=== PATIENT | male | born 1935 | race Caucasian/White ===

== ENCOUNTER 2022-02-14 18:07 | Inpatient (IN) | payer MEDICARE ==
[~2022-02-14] VITALS: Ht 185.4 cm; Wt 79.4 kg
[2022-02-14] MEDS: BLOOD SUGAR DIAGNOSTIC 1 EACH STRIP VI SCH (01:20)
--- NOTE | 2022-02-14 18:22 | NUR ---
Patient is in CT scan@this time, pending nursing hands off report from discharge rn Andrei@this time.
[2022-02-14] MEDS ORDERED: ASPI81TA31 PO (18:38)
[2022-02-14] MEDS ORDERED: INSULIN DETEMIR (18:38)
[2022-02-14] MEDS ORDERED: CRESTOR (18:38)
[2022-02-14] MEDS ORDERED: ALBUTEROL SULF (18:38)
[2022-02-14] MEDS ORDERED: COREG (18:38)
[2022-02-14] MEDS ORDERED: DECADRON (18:38)
--- NOTE | 2022-02-14 18:38 | NUR ---
PT DOES NOT REMEMBER HIS HOME MEDICATION DOSAGES.
--- NOTE | 2022-02-14 18:45 | NUR ---
1st contact with patient: He is lethargic-looking, oriented to name and situation, moving all extremities, follows simple commands. Patient said, "I have disorientation." Dr Trammell@bedside.
--- NOTE | 2022-02-14 18:56 | NUR ---
NPO per Dr Trammell.
[2022-02-14 19:00] VITALS: BP 108/49
--- NOTE | 2022-02-14 19:02 | NUR ---
Respiratory therapist@bedside. ABG being drawn. Patient need urine sample for lab studies. Nursing report given to JUANY Maldonado.
[2022-02-14 19:07] LABS: ABG BASE EXCESS -6.6 mmol/L; ABG HCO3 25.6 mmol/L; ABG PCO2 94.3 mmHg (35.0-45.0); ABG PH 7.051 (7.350-7.450); ABG PO2 87.8 mmHg (75.0-100.0); ABG SITE LEFT RADIAL; ABG TOTAL HEMOGLOBIN 12.2 G/dL (13.5-18.0); COHb 0.5 % (0.5-1.5); MetHb 0.3 % (0.0-1.5); O2Hb 95.1 % (94.0-97.0); VENT MODE Nasal Cannula
[2022-02-14 19:11] LABS: HEMATOCRIT 36.5 % (36.7-47.1); MEAN CORPUSCULAR HEMOGLOBIN 30.3 uug (23.8-33.4); MEAN CORPUSCULAR VOLUME 95.7 fL (73.0-96.2); PLATELET COUNT (AUTO) 273 K/uL (152-348)
[2022-02-14 19:20] LABS: ETHANOL < 3 MG/DL (0-0)
--- NOTE | 2022-02-14 19:21 | NUR ---
Dr Trammell spoke to Dr Noble for neuro surgery consult.
[2022-02-14 19:27] LABS: ALANINE AMINOTRANSFERASE 20 U/L (16-63); ALKALINE PHOSPHATASE 92 U/L (50-136); ASPARTATE AMINOTRANSFERASE 20 U/L (15-37); BILIRUBIN,DIRECT 0.1 mg/dL (0.0-0.2); BILIRUBIN,TOTAL 0.2 mg/dL (0.2-1.0); CARBON DIOXIDE 29 mmol/L (21-32); CHLORIDE 89 mmol/L (98-107); CREATININE 3.8 mg/dL (0.6-1.3); POTASSIUM 4.6 mmol/L (3.5-5.1); TOTAL PROTEIN, SERUM 6.2 g/dL (6.4-8.2)
[2022-02-14 19:28] LABS: ACETAMINOPHEN < 2.0 ug/mL (10-30); GLUCOSE 337 mg/dL (74-106)
[2022-02-14 19:29] LABS: UREA NITROGEN, BLOOD 91 mg/dL (7-18)
--- NOTE | 2022-02-14 19:36 | NUR ---
abg as follows ph 7.05 co2 94 po2 87.8 hc03 25.6 pt was placed on bipap with settings. 15/5 rate 18 fi02 30 percent.
--- NOTE | 2022-02-14 19:39 | NUR ---
pt initially lethargic pt arouses and is verbal. pt is on bipap at this time.
[2022-02-14] MEDS ORDERED: levoFLOXacin 750MG/D5W 150 ML IV ONE ×2 (19:45→20:00)
[2022-02-14] MEDS ORDERED: PIPERACILLIN SODIUM/TAZOBACTAM 3.375 G in IV DEXTROSE 5% 50 ML IV ONE (19:45)
[2022-02-14 20:00] VITALS: BP 144/90
[2022-02-14] MEDS ORDERED: PIPERACILLIN/TAZOBACTAM/D5W 50 ML IV ONE (20:00)
[2022-02-14 20:28] LABS: *BILIRUBIN,URIN 1+ (NEGATIVE); *BLOOD, URINE 3+ (NEGATIVE); *CLARITY,URINE CLOUDY (CLEAR); *COLOR,URINE AMBER (YELLOW); *KETONES,URINE NEGATIVE (NEGATIVE); *UROBILINOGEN,URINE 0.2 E.U./dl (NORMAL); LEUKOCYTE ESTERASE ,URINE 1+ (NEGATIVE); NITRITE, URINE NEGATIVE (NEGATIVE); PH,URINE 5.5 (5.0-8.0); UGLUCOSE TRACE (NEGATIVE)
[2022-02-14] MEDS ORDERED: MAGNESIUM HYDROXIDE 30 ML LIQUID UDC PO PRN (20:30)
[2022-02-14] MEDS ORDERED: CEFEPIME HCL 1 G in IV DEXTROSE 5% 50 ML IV SCH (20:30)
[2022-02-14] MEDS ORDERED: ACETAMINOPHEN 325 MG TABLET PO PRN (20:30)
[2022-02-14] MEDS ORDERED: ONDANSETRON 4 MG/2 ML VIAL IV PRN (20:30)
[2022-02-14] MEDS ORDERED: HYDROCODONE/APAP 5-325MG TABLET PO PRN (20:30)
[2022-02-14] MEDS ORDERED: MORPHINE SULFATE 2 MG/1 ML DISP.SYRIN IV PRN (20:30)
[2022-02-14 20:46] LABS: *AMPHETAMINE, URINE NEGATIVE (NEGATIVE); *CANNABINOID, URINE NEGATIVE (NEGATIVE); *COCCAINE, URINE NEGATIVE (NEGATIVE); *OPIATE, URINE NEGATIVE (NEGATIVE); *PHENCYCLIDINE SCREEN,URINE NEGATIVE (NEGATIVE)
[2022-02-14 20:54] LABS: BACTERIA,URINE FEW /HPF (NONE SEEN); RBC,URINE TNTC /HPF (0-3); SQUAMOUS EPITHELIAL CELL,UR FEW /HPF (NONE SEEN)
[2022-02-14 21:00] VITALS: BP 121/50
[2022-02-14] MEDS: INSULIN GLARGINE,HUM 300 UNITS/3 ML CARTRIDGE SQ SCH (21:00)
[2022-02-14] MEDS ORDERED: DEXTROSE 50% 50 ML DISP.SYRIN IV PRN (21:00)
--- NOTE | 2022-02-14 21:03 | NUR ---
clarified orders pt is icu status, pt remains on bipap, pt is comfortable on bipap at this time. pt is able to move all extrem and make needs known despite having the bipap mask on. pt family at the bedside talking with the pt.
[2022-02-14 22:00] VITALS: BP 116/65
--- NOTE | 2022-02-14 22:08 | NUR ---
pt states he is more comforatable he does not feel like he is struggling to breathe. pt's daughter remains at the bedside. explained why he is on the bipap and abg results.
--- NOTE | 2022-02-14 22:20 | NUR ---
spoke with Astrid HARRINGTON they will call back in 15 to 20 mintues to take report on the pt.
--- NOTE | 2022-02-14 22:28 | NUR ---
pt is currently having an ultrasound performed, pt has a pending head ct.
--- NOTE | 2022-02-14 22:59 | NUR ---
report was given to Kinjal HARRINGTON pt to go to room icu bed 5.
[2022-02-14 23:00] VITALS: BP 121/55
--- NOTE | 2022-02-14 23:15 | NUR ---
pt was transported to cat scan and then to icu bed 5, Romain HARRINGTON accompanied me to cat scan and to icu. In auricular therapistJUANY Sahu was in the room to receive the pt. pt transported with all belongings.
--- NOTE | 2022-02-14 23:40 | NUR ---
Received patient in the ICU awake and alert and oriented times three. Pt was accompanied by RN and RT PT is in no distress. O2 in use via NC. assisted to transfer from [facility]. Pt has tolerated the activity.
[2022-02-14] MEDS ORDERED: CEFEPIME HCL 1 G in IV DEXTROSE 5% 50 ML IV ONE (23:45)
--- NOTE | 2022-02-14 23:45 | NUR ---
PATIENT NOW IN CCU #5 WITH O2 2L/M NC, S/B BI/PAP CAME FROM CT/SCAN WITH NURSE, PT DOING MUCH BETTER, AWAKE, AND TALKING CLEAR. Carisa STOKES RCP Addendum: 02/14/22 at 2347 by DEANGELO STOKES RT Amended: Links added.
[2022-02-15] VITALS (21 sets, daily range): BP systolic 88–144; BP diastolic 45–87
--- NOTE | 2022-02-15 01:06 | NUR ---
BS 284. WILLL COVER PER ADMIT ORDERS. SPOKE TO PATIENT'S DAUGHTER LISSETTE WHO WISHES THAT ALL HOME MEDICATIONS RENEWED IMMIDIATELY. WILL NOTIFY MD MAINFRAME PROGRAMMER.
[2022-02-15] MEDS: INSULIN REGULAR, HUMAN 300 UNIT/3 ML VIAL SQ PRN ×4 (01:38→17:44)
[2022-02-15] MEDS ORDERED: CEFEPIME HCL 1 G VIAL ONE (01:42)
[2022-02-15] MEDS: CEFEPIME HCL 1 G in IV DEXTROSE 5% 50 ML IV SCH ×3 (02:29→15:00)
[2022-02-15] MEDS ORDERED: MORPHINE SULFATE 2 MG/1 ML DISP.SYRIN IV ONE (03:30)
--- NOTE | 2022-02-15 04:09 | NUR ---
pt verbalizes feelimg a sense of doom. Dr Tobias called to request medicationfor anxiety. Morphine administered as ordered.BP 120/50, hr 82 o2sat 98 RR 20.. Will continue to manitor effectiveness of medication.
[2022-02-15 05:36] LABS: HEMATOCRIT 33.8 % (36.7-47.1); MEAN CORPUSCULAR HEMOGLOBIN 30.8 uug (23.8-33.4); MEAN CORPUSCULAR VOLUME 93.6 fL (73.0-96.2); PLATELET COUNT (AUTO) 256 K/uL (152-348)
[2022-02-15 05:45] LABS: CARBON DIOXIDE 29 mmol/L (21-32); CHLORIDE 90 mmol/L (98-107); CREATININE 3.9 mg/dL (0.6-1.3); GLUCOSE 275 mg/dL (74-106); MAGNESIUM 2.7 mg/dL (1.8-2.4); PHOSPHOROUS 5.8 mg/dL (2.5-4.9); POTASSIUM 4.2 mmol/L (3.5-5.1)
--- NOTE | 2022-02-15 05:56 | NUR ---
Lab called and spoke with Zeke cavazos: critical lab result BUN 95. Relayed result to primary nurse JUANY Layton.
[2022-02-15 05:57] LABS: UREA NITROGEN, BLOOD 95 mg/dL (7-18)
--- NOTE | 2022-02-15 05:57 | NUR ---
Called EPIC exchange re: critical lab result. Awaiting for callback.
[2022-02-15 05:58] LABS: THYROID STIMULATING HORMONE 2.444 mIU/mL (0.358-3.740)
--- NOTE | 2022-02-15 06:40 | NUR ---
Called EPIC exchange re: critical lab result. Awaiting for callback.
[2022-02-15] MEDS: GUAIFENESIN/DEXTROMETHORPHAN 5 ML UDC PO PRN (07:04)
[2022-02-15] MEDS: BLOOD SUGAR DIAGNOSTIC 1 EACH STRIP VI SCH ×4 (07:30→22:14)
[2022-02-15 07:31] LABS: ABG BASE EXCESS -5.2 mmol/L; ABG PCO2 75.7 mmHg (35.0-45.0); ABG PH 7.136 (7.350-7.450); ABG PO2 99.7 mmHg (75.0-100.0); ABG SITE RIGHT BRACHIAL; ABG TOTAL HEMOGLOBIN 11.6 G/dL (13.5-18.0); COHb 0.2 % (0.5-1.5); MetHb 0.1 % (0.0-1.5); O2Hb 96.9 % (94.0-97.0); VENT MODE Nasal Cannula
--- NOTE | 2022-02-15 07:35 | NUR ---
attempted to place pt on BiPap post ABG, pt awake, alert, sts does not want BiPap at this time, and does not want breakfast, Marva HARRINGTON notified and aware..
[2022-02-15] MEDS ORDERED: BISACODYL 10 MG SUPP.RECT RC PRN (08:15)
[2022-02-15] MEDS ORDERED: BISACODYL 10 MG SUPP.RECT RC ONE (08:30)
[2022-02-15] MEDS: PANTOPRAZOLE SODIUM 40 MG VIAL IV SCH (09:51)
--- NOTE | 2022-02-15 09:55 | NUR ---
Patient;s son in to visit and spoke with Dr Calderon Pulmargarita. Patient has been off the Bipap since 629 and been on O2 2L via nasal canula O2SAT 97.
[2022-02-15] MEDS: LORAZEPAM 2 MG/1 ML VIAL IV PRN (10:14)
--- NOTE | 2022-02-15 10:22 | NUR ---
Lorazapam administered as ordered with BP 111/58, AND RR 18, o2sat 97 . Family is at the bedside SW att he bedside.
--- NOTE | 2022-02-15 10:42 | NUR ---
Clinical SW Note: SW provided a consult for the pt as requested by MIRIAM Tobias. Pt is alert and oriented x1. Pt appeared to know he is in a hospital. Pt appeared to be confused otherwise. Pt appeared lethargic and drowsy. Pt's son, Mesfin ([phone]) was present and stated the pt currently lives with a 24/7 caregiver, Tammy who will continue caregiving after discharge and pt's , Alysa in [place]. Mesfin stated he has 2 other siblings, Yang ([phone]) and a brother, Dyllan, ([phone]). Mesfin stated pt was independent prior to hospitalization and significantly declined within a few days prior to hospitalization. DORIAN stated this underwriter solicitation director will be available for further questions as needed. DORIAN will continue to work with pt, family and MD to ensure a safe and proper discharge plan.
[2022-02-15] MEDS ORDERED: ALBUTEROL SULFATE 1.25 MG/3 ML NEBU NEB PRN (13:30)
[2022-02-15] MEDS ORDERED: LEVALBUTEROL HCL NEB 0.63 MG/3 ML NEBU NEB SCH (13:30)
[2022-02-15] MEDS: ALBUTEROL SULFATE 1.25 MG/3 ML NEBU NEB SCH ×2 (15:22→19:30)
[2022-02-15] MEDS: IPRATROPIUM BROMIDE 0.5 MG/2.5 ML NEBU NEB SCH ×2 (15:22→19:30)
[2022-02-15] MEDS ORDERED: CARV6.252 PO (17:54)
[2022-02-15] MEDS ORDERED: ALBU18HF2 INH (18:00)
[2022-02-15] MEDS ORDERED: INSU300I3 SQ (18:00)
[2022-02-15] MEDS ORDERED: DEXA4TAB PO (18:00)
[2022-02-15] MEDS ORDERED: BENZ200C53 PO (18:00)
[2022-02-15] MEDS ORDERED: VIT1TABL46 PO (18:00)
[2022-02-15] MEDS ORDERED: NATE120T6 PO (18:00)
[2022-02-15] MEDS ORDERED: SEVE800T8 PO (18:00)
[2022-02-15] MEDS ORDERED: ROSU20TA2 PO (18:00)
[2022-02-15] MEDS ORDERED: ACET-73 PO (18:00)
--- NOTE | 2022-02-15 20:00 | NUR ---
PT IS ASLEEP AND IS IN NO DISTRESS. PATIENT IS VALM AND TOLERATING BIPAP PER MD ORDER. VS IS WNL. ENDORSED REPORT TO LOBO RN. IV IN LWRIST IS INTACT ABD PATENT. RICHEY CATHIS INTACT AND PATENT URINE IS CLEAR YELLOW.
--- NOTE | 2022-02-15 20:20 | NUR ---
Received patient from CCU unit, alert oriented, but forgetful, no so Addendum: 02/16/22 at 0045 by LORENZO TAYLOR RN Received patient from CCU unit, alert oriented, but forgetful, no so, charting in error.
--- NOTE | 2022-02-15 20:20 | NUR ---
Received patient from CCU unit, alert oriented x 2/3, no complain of pain, no complain of chest pain, on oxygen for short of breath, patient has moist cough, kept hob elevated, tele monitor.sinus rhythm with trigeminy, patient unable to lay flat, with sacral sore and bilateral heel sores, daughter at bedside, cont to monitor
[2022-02-15] MEDS: FOLIC ACID/VITAMIN B COMP W-C TABLET PO SCH (21:58)
[2022-02-15] MEDS: INSULIN GLARGINE,HUM 300 UNITS/3 ML CARTRIDGE SQ SCH (22:22)
--- NOTE | 2022-02-16 00:15 | NUR ---
RESTORIL ADMINISRTED. pt desats 87. RT NOTIFIED. AND BIPAP STARTED TO MAINTAIN UXYGENATION. PT IS ASLEEP WITHOUT DISTRESS. BP 122/42,HR 82. WILL CONTINUE TO MONITOR. HOB 45.
[2022-02-16] MEDS: CEFEPIME HCL 1 G in IV DEXTROSE 5% 50 ML IV SCH (01:45)
[2022-02-16] MEDS: IPRATROPIUM BROMIDE 0.5 MG/2.5 ML NEBU NEB SCH ×4 (01:45→19:27)
[2022-02-16] MEDS: ALBUTEROL SULFATE 1.25 MG/3 ML NEBU NEB SCH ×4 (01:45→19:27)
[2022-02-16 04:00] VITALS: BP 126/64
[2022-02-16] MEDS: BLOOD SUGAR DIAGNOSTIC 1 EACH STRIP VI SCH ×4 (06:02→21:00)
[2022-02-16 06:20] LABS: ABG BASE EXCESS -4.4 mmol/L; ABG HCO3 24.7 mmol/L; ABG PCO2 66.1 mmHg (35.0-45.0); ABG PO2 86.1 mmHg (75.0-100.0); ABG SITE RIGHT BRACHIAL; ABG TOTAL HEMOGLOBIN 11.5 G/dL (13.5-18.0); COHb 0.2 % (0.5-1.5); O2Hb 95.8 % (94.0-97.0); VENT MODE Nasal Cannula
[2022-02-16 07:04] LABS: HEMATOCRIT 33.7 % (36.7-47.1); MEAN CORPUSCULAR HEMOGLOBIN 30.4 uug (23.8-33.4); MEAN CORPUSCULAR VOLUME 92.2 fL (73.0-96.2); PLATELET COUNT (AUTO) 269 K/uL (152-348)
--- NOTE | 2022-02-16 07:06 | NUR ---
Patient awake alert, no complain of pain, tele monitor sinus rhythm, sinus tachy, no complain of pain at this time, patient was on CPAP all night tolerate well, Patient tolerate po meds and po fluids, with on and off moist cough, kept hob elevated, cont to monitor.
[2022-02-16 07:23] LABS: ALANINE AMINOTRANSFERASE 35 U/L (16-63); ALKALINE PHOSPHATASE 71 U/L (50-136); ASPARTATE AMINOTRANSFERASE 20 U/L (15-37); BILIRUBIN,TOTAL 0.1 mg/dL (0.2-1.0); CARBON DIOXIDE 30 mmol/L (21-32); CHLORIDE 91 mmol/L (98-107); CHOLESTEROL 66 mg/dL (<200); CREATININE 4.4 mg/dL (0.6-1.3); GLUCOSE 108 mg/dL (74-106); HDL CHOLESTEROL 40 mg/dL (40-60); PHOSPHOROUS 5.6 mg/dL (2.5-4.9); POTASSIUM 4.6 mmol/L (3.5-5.1); TRIGLYCERIDES 51 MG/DL (30-150)
--- NOTE | 2022-02-16 07:30 | NUR ---
Sleeping, appears comfortable. O2 at 2L/NC with O2 sat of 95%. Discussed with Dr. Roldan and RT regarding titrating O2 with goal of 88-92%. Will titrate O2 to 1L/NC
[2022-02-16 07:34] LABS: THYROID STIMULATING HORMONE 2.503 mIU/mL (0.358-3.740)
[2022-02-16 07:50] VITALS: BP 114/49
[2022-02-16 08:04] LABS: UREA NITROGEN, BLOOD 101 mg/dL (7-18)
[2022-02-16] MEDS: PANTOPRAZOLE SODIUM 40 MG VIAL IV SCH (09:35)
[2022-02-16] MEDS: ASPIRIN 81 MG TAB.CHEW PO SCH (09:35)
[2022-02-16] MEDS: GUAIFENESIN LA 600 MG TABLET.SA PO SCH ×2 (09:35→22:34)
[2022-02-16] MEDS: SEVELAMER CARBONATE 800 MG TABLET PO SCH ×3 (09:35→18:13)
[2022-02-16] MEDS: ACIDOPHILUS/BULGARICUS CHEW TAB PO SCH ×2 (09:35→22:34)
--- NOTE | 2022-02-16 10:30 | NUR ---
Assisted out of bed to the commode with BM. Ambulated with PT outside the room, tolerated.
[2022-02-16 11:06] VITALS: BP 121/46
[2022-02-16 11:41] VITALS: BP 121/46
[2022-02-16] MEDS: INSULIN REGULAR, HUMAN 300 UNIT/3 ML VIAL SQ PRN ×3 (12:18→22:36)
--- NOTE | 2022-02-16 12:30 | NUR ---
O2 titrated to 0.5L/NC with O2 sat of 95%. Removed O2 with O2 sat of 95-98%, not in distress
[2022-02-16] MEDS: CEFEPIME HCL 2 G in IV DEXTROSE 5% 100 ML IV SCH (13:55)
--- NOTE | 2022-02-16 14:30 | NUR ---
Assisted to the chair per patients request with family at bedside
[2022-02-16 16:00] VITALS: BP 121/62
--- NOTE | 2022-02-16 16:00 | NUR ---
Assisted back to bed, tolerated approximately 2 hours of sitting on the chair, not in distress.
[2022-02-16] MEDS: FOLIC ACID/VITAMIN B COMP W-C TABLET PO SCH (18:13)
--- NOTE | 2022-02-16 18:57 | NUR ---
With poor po intake. Encouraged by family at bedside. Room air with O2 sat of 94%, not in distress
[2022-02-16 20:00] VITALS: BP 124/52
[2022-02-16] MEDS: INSULIN GLARGINE,HUM 300 UNITS/3 ML CARTRIDGE SQ SCH (22:40)
[2022-02-16] MEDS: GUAIFENESIN/DEXTROMETHORPHAN 5 ML UDC PO PRN (22:45)
[2022-02-17] VITALS (7 sets, daily range): BP systolic 103–147; BP diastolic 44–70
[2022-02-17] MEDS ORDERED: TEMAZEPAM 15 MG CAPSULE PO PRN
--- NOTE | 2022-02-17 01:30 | NUR ---
ASLEEP IN BED. RESP IS REGULAR AND EVEN O2AST 94 ON BIPAP 15/5, RATE 16 FIO2 30.. RICHEY CATH IS INTACT AND PATEN AND DRAINING ADEQUATE URINE.
[2022-02-17] MEDS: IPRATROPIUM BROMIDE 0.5 MG/2.5 ML NEBU NEB SCH ×4 (01:41→19:35)
[2022-02-17] MEDS: ALBUTEROL SULFATE 1.25 MG/3 ML NEBU NEB SCH ×4 (01:41→19:35)
[2022-02-17] MEDS ORDERED: MEROPENEM 500MG/NS 50ML PB ***ER PYXIS ONLY IV ONE (02:02)
--- NOTE | 2022-02-17 03:00 | NUR ---
PT IS ASLEEP IN BED. AROUSABLE TO TACTILE STMULI. RBIPAP REMOVED BY RT. O2 APPLYED VIA NC BY RT. . RESP IS REGULARAND UNLABORED. HOB 45 PT HAS A PRODUCTIVE COUGH THIS SHIFT. TOLERATED BREATHING TREATMENT;
[2022-02-17 06:42] LABS: HEMATOCRIT 33.5 % (36.7-47.1); MEAN CORPUSCULAR HEMOGLOBIN 30.9 uug (23.8-33.4); MEAN CORPUSCULAR VOLUME 91.7 fL (73.0-96.2); PLATELET COUNT (AUTO) 265 K/uL (152-348)
[2022-02-17 07:13] LABS: CARBON DIOXIDE 28 mmol/L (21-32); CHLORIDE 91 mmol/L (98-107); CREATININE 4.6 mg/dL (0.6-1.3); GLUCOSE 94 mg/dL (74-106); MAGNESIUM 3.1 mg/dL (1.8-2.4); PHOSPHOROUS 5.4 mg/dL (2.5-4.9); POTASSIUM 4.4 mmol/L (3.5-5.1)
[2022-02-17 07:16] LABS: UREA NITROGEN, BLOOD 105 mg/dL (7-18)
[2022-02-17] MEDS: BLOOD SUGAR DIAGNOSTIC 1 EACH STRIP VI SCH ×4 (07:30→21:05)
--- NOTE | 2022-02-17 07:30 | NUR ---
RECEIVED PT SLEEPING. PT IS CONFUSED AND REFUSING TO PUT BIPAP ON LAST NIGHT PER NOC SHIFT NURSE. PT HAVE RIGO 20G SALINE LOCK. FC [id number] AND DRAINING WELL.
[2022-02-17 08:02] LABS: ABG BASE EXCESS -6.5 mmol/L; ABG HCO3 23.2 mmol/L; ABG PH 7.145 (7.350-7.450); ABG PO2 82.8 mmHg (75.0-100.0); ABG SITE RIGHT RADIAL; ABG TOTAL HEMOGLOBIN 11.6 G/dL (13.5-18.0); COHb 0.3 % (0.5-1.5); MetHb 0.2 % (0.0-1.5); O2Hb 94.5 % (94.0-97.0); VENT MODE Nasal Cannula
--- NOTE | 2022-02-17 08:35 | NUR ---
Pt removed BiPap, refused to put back on, RN notified..
[2022-02-17] MEDS: PANTOPRAZOLE SODIUM 40 MG TABLET.DR PO SCH (09:08)
[2022-02-17] MEDS: SEVELAMER CARBONATE 800 MG TABLET PO SCH ×3 (09:08→18:03)
[2022-02-17] MEDS: ASPIRIN 81 MG TAB.CHEW PO SCH (09:08)
[2022-02-17] MEDS: GUAIFENESIN LA 600 MG TABLET.SA PO SCH ×2 (09:08→20:59)
[2022-02-17] MEDS: ACIDOPHILUS/BULGARICUS CHEW TAB PO SCH ×2 (09:08→20:54)
--- NOTE | 2022-02-17 10:00 | NUR ---
TALKED TO NURSE TRAVEL RN TO REQUEST FOR THE FAMILY TO STAY BEDSIDE. NS WILL ALLOW FAMILY TO STAY DAY AND NIGHT.
[2022-02-17] MEDS: CEFEPIME HCL 2 G in IV DEXTROSE 5% 100 ML IV SCH (15:03)
--- NOTE | 2022-02-17 16:30 | NUR ---
BIPAP REMOVED FOR A BREAK PER PT REQUEST. PT PLACED ON 2lpm NASAL CANULA. NO DISTRESS NOTED. NURSE JENNY AWARE AND NOTIFIED. WILL CONTINUE TO MONITOR
[2022-02-17] MEDS: FOLIC ACID/VITAMIN B COMP W-C TABLET PO SCH (18:03)
--- NOTE | 2022-02-17 19:45 | NUR ---
Patient in bed awake and able to make needs known.Tele monitor sinus rhythm. O2 at 1 LPM via NC. No s/s of distress noted.HOB elevated. Aspiration precaution observed .Patient tolerate po meds and po fluids.Family member at bedside.Will continue to monitor.
--- NOTE | 2022-02-17 19:54 | NUR ---
PT IS ALERT AND COOPERATIVE. PT IS BIPAP COMPLIANCE. DR WILSON TALKED TO THE FAMILY.
[2022-02-17] MEDS: INSULIN GLARGINE,HUM 300 UNITS/3 ML CARTRIDGE SQ SCH (21:08)
[2022-02-17] MEDS: INSULIN REGULAR, HUMAN 300 UNIT/3 ML VIAL SQ PRN (21:11)
--- NOTE | 2022-02-17 23:20 | NUR ---
Patient HOB elevated.Placed on bipap by RT.Tolerated well. No SOB at this time.Will continue to monitor.
[2022-02-18 00:28] VITALS: BP 140/62
[2022-02-18] MEDS: ALBUTEROL SULFATE 1.25 MG/3 ML NEBU NEB SCH ×4 (01:02→19:30)
[2022-02-18] MEDS: IPRATROPIUM BROMIDE 0.5 MG/2.5 ML NEBU NEB SCH ×4 (01:02→19:30)
[2022-02-18 04:33] VITALS: BP 145/65
[2022-02-18] MEDS: PANTOPRAZOLE SODIUM 40 MG TABLET.DR PO SCH (06:05)
[2022-02-18 06:11] LABS: ALANINE AMINOTRANSFERASE 25 U/L (16-63); ALKALINE PHOSPHATASE 59 U/L (50-136); ASPARTATE AMINOTRANSFERASE 16 U/L (15-37); BILIRUBIN,TOTAL 0.4 mg/dL (0.2-1.0); CARBON DIOXIDE 28 mmol/L (21-32); CHLORIDE 92 mmol/L (98-107); CREATININE 4.6 mg/dL (0.6-1.3); GLUCOSE 91 mg/dL (74-106); MAGNESIUM 3.3 mg/dL (1.8-2.4); PHOSPHOROUS 5.1 mg/dL (2.5-4.9); POTASSIUM 4.7 mmol/L (3.5-5.1); TOTAL PROTEIN, SERUM 5.6 g/dL (6.4-8.2)
[2022-02-18 06:24] LABS: UREA NITROGEN, BLOOD 103 mg/dL (7-18)
[2022-02-18] MEDS: BLOOD SUGAR DIAGNOSTIC 1 EACH STRIP VI SCH ×4 (06:34→21:29)
--- NOTE | 2022-02-18 06:34 | NUR ---
Patient tolerated BIPAP.NO SOB.BS 74.[place] juice and pudding given.Wound care tx provided.Tolerated well. Changed and repositioned patient.Kept HOB elevated. Breathing tx given by RT.F/c in place. Needs anticipated and met accordingly.Will endorse to incoming shift.
[2022-02-18 06:40] LABS: HEMATOCRIT 31.8 % (36.7-47.1); MEAN CORPUSCULAR HEMOGLOBIN 30.5 uug (23.8-33.4); MEAN CORPUSCULAR VOLUME 90.8 fL (73.0-96.2); PLATELET COUNT (AUTO) 264 K/uL (152-348)
[2022-02-18] MEDS: SEVELAMER CARBONATE 800 MG TABLET PO SCH ×3 (08:23→17:01)
[2022-02-18] MEDS: ASPIRIN 81 MG TAB.CHEW PO SCH (08:23)
[2022-02-18] MEDS: ACIDOPHILUS/BULGARICUS CHEW TAB PO SCH ×2 (08:23→21:28)
[2022-02-18] MEDS: GUAIFENESIN LA 600 MG TABLET.SA PO SCH ×2 (08:25→21:28)
--- NOTE | 2022-02-18 08:30 | NUR ---
VERY SOB AND HYPOXIC ON O2 AT 2L N/C, AND STARTING TO DESATURATE. TO THE LOW 80'S. RESP. THERAPY CALLED TO REPLACE THE BIPAP. SON AT BEDSIDE.
[2022-02-18] MEDS: LORAZEPAM 2 MG/1 ML VIAL IV PRN (08:53)
--- NOTE | 2022-02-18 09:00 | NUR ---
DR. YA NOTIFIED OF CONDITION. ORDERS RECEIVED.
[2022-02-18 09:11] LABS: ABG BASE EXCESS -4.5 mmol/L; ABG HCO3 23.4 mmol/L; ABG PCO2 55.9 mmHg (35.0-45.0); ABG PH 7.239 (7.350-7.450); ABG PO2 56.8 mmHg (75.0-100.0); ABG SITE RIGHT BRACHIAL; ABG TOTAL HEMOGLOBIN 12.1 G/dL (13.5-18.0); COHb 0.4 % (0.5-1.5); MetHb 0.3 % (0.0-1.5); O2Hb 87.9 % (94.0-97.0); VENT MODE BIPAP - 15/5
[2022-02-18 10:06] LABS: COMPLEMENT, C3 SERUM 75 mg/dL (82-167); COMPLEMENT, C4 SERUM 19 mg/dL (12-38)
--- NOTE | 2022-02-18 10:30 | NUR ---
DR. HINES HERE AND AWARE OF CONDITION. NOTED RESULTS OF THE CXR AND ABG'S.
--- NOTE | 2022-02-18 11:00 | NUR ---
PULLED OFF BIPAP. DESATURATED TO THE HIGH 70'S. REPLACED. EUNICE RT HERE TO CHECK.
[2022-02-18 12:01] VITALS: BP 141/60
[2022-02-18] MEDS: CEFEPIME HCL 2 G in IV DEXTROSE 5% 100 ML IV SCH (14:46)
[2022-02-18 16:48] VITALS: BP 126/54
[2022-02-18] MEDS: FOLIC ACID/VITAMIN B COMP W-C TABLET PO SCH (17:01)
[2022-02-18] MEDS: INSULIN REGULAR, HUMAN 300 UNIT/3 ML VIAL SQ PRN ×2 (17:03→21:30)
--- NOTE | 2022-02-18 19:30 | NUR ---
Received pt in no acute distress. Iv intact. Pt ralph catheter intact. Pt on BIPAP. Pt on controlled afib. Family at bedside. Safety and comfort provided. Will continue to monitor.
[2022-02-18 20:19] VITALS: BP 139/67
[2022-02-18] MEDS: INSULIN GLARGINE,HUM 300 UNITS/3 ML CARTRIDGE SQ SCH (21:29)
[2022-02-19 00:21] VITALS: BP 136/67
[2022-02-19] MEDS: ALBUTEROL SULFATE 1.25 MG/3 ML NEBU NEB SCH ×4 (01:38→19:48)
[2022-02-19] MEDS: IPRATROPIUM BROMIDE 0.5 MG/2.5 ML NEBU NEB SCH ×4 (01:38→19:48)
[2022-02-19 04:37] VITALS: BP 121/71
--- NOTE | 2022-02-19 06:00 | NUR ---
PATIENT IS CURRENTLY ON BIPAP 15/5 BUR 18, FIO2 25-35% (SPO2 GOAL 88-92% PER MD). PATIENT EXHIBITS SOB WHEN LAYING ON RIGHT SIDE, PER XRAY PATIENT HAS R PNA AND PLEURAL EFFUSION. COURSE BREATHSOUNDS NOTED POST HHN TX. PATIENT HAS WEAK COUGH. NT SUCTION TOLERATED WELL, SMALL TO MODERATE AMOUNTS OF THICK PALE YELLOW/ THOMPSON SECRETIONS. NO COMPLICATIONS, IMPROVED AERATION. INHALED TREATMENT ORDERS REVIEWED AND TOLERATED WELL, NO ADVERSE REACTIONS NOTED. CONTINUOUS PULSE OXIMETER AT BEDSIDE. BIPAP PLUGGED IN TO RED OUTLET/ ALARMS ON AND AUDIBLE. FAMILY/SITTER AT BEDSIDE. WILL CONTINUE TO MONITOR.
--- NOTE | 2022-02-19 06:15 | NUR ---
Pt slept intermittently. Pt in no acute distress. Iv intact. Pt on sinus rhthm with PAC. Pt on BIPAP .Prescribed medication given and pt tolerated it well.Caregiver at bedside. Pt suction prn . All needs are met. Safety and comfort provided. Vital signs within normal limit. Will endorse to incoming nurse for continuity of care.
[2022-02-19] MEDS: PANTOPRAZOLE SODIUM 40 MG TABLET.DR PO SCH (06:21)
[2022-02-19] MEDS: BLOOD SUGAR DIAGNOSTIC 1 EACH STRIP VI SCH ×4 (06:32→20:39)
[2022-02-19 06:53] LABS: HEMATOCRIT 31.2 % (36.7-47.1); MEAN CORPUSCULAR HEMOGLOBIN 30.8 uug (23.8-33.4); PLATELET COUNT (AUTO) 251 K/uL (152-348)
[2022-02-19 07:00] LABS: *BILIRUBIN,URIN NEGATIVE (NEGATIVE); *BLOOD, URINE 3+ (NEGATIVE); *CLARITY,URINE CLEAR (CLEAR); *COLOR,URINE RED (YELLOW); *KETONES,URINE NEGATIVE (NEGATIVE); *UROBILINOGEN,URINE 0.2 E.U./dl (NORMAL); LEUKOCYTE ESTERASE ,URINE 2+ (NEGATIVE); NITRITE, URINE NEGATIVE (NEGATIVE); PH,URINE 5.5 (5.0-8.0); UGLUCOSE NEGATIVE (NEGATIVE)
[2022-02-19 07:03] LABS: CARBON DIOXIDE 27 mmol/L (21-32); CHLORIDE 93 mmol/L (98-107); CREATININE 4.7 mg/dL (0.6-1.3); GLUCOSE 104 mg/dL (74-106); MAGNESIUM 3.2 mg/dL (1.8-2.4); PHOSPHOROUS 5.3 mg/dL (2.5-4.9); POTASSIUM 4.3 mmol/L (3.5-5.1)
[2022-02-19 07:13] LABS: *CREATININE,URINE 16.9 mg/dL (30-125); *URINE TOTAL PROTEIN RANDOM 64.6 mg/dL (<150/24HR)
--- NOTE | 2022-02-19 08:00 | NUR ---
patient received on 2L 02 via NC, in no acute distress. AAOx4, able to make needs known. No c/o chest pain or SOB. patient c/o pain to sacral area, repositioned to right side with help. Telemetry is NSR with PAC. patient states he is looking forward to breakfast. Patient BIPAP removed around [address] Roldan aware of patient status and oxygen/ bipap need.
[2022-02-19 08:09] LABS: UREA NITROGEN, BLOOD 108 mg/dL (7-18)
[2022-02-19] MEDS: GUAIFENESIN LA 600 MG TABLET.SA PO SCH ×2 (08:41→20:38)
[2022-02-19] MEDS: ASPIRIN 81 MG TAB.CHEW PO SCH (08:41)
[2022-02-19] MEDS: SEVELAMER CARBONATE 800 MG TABLET PO SCH ×3 (08:41→17:12)
[2022-02-19] MEDS: ACIDOPHILUS/BULGARICUS CHEW TAB PO SCH ×2 (08:41→20:35)
[2022-02-19] MEDS: INSULIN REGULAR, HUMAN 300 UNIT/3 ML VIAL SQ PRN ×4 (08:42→21:00)
--- NOTE | 2022-02-19 10:00 | NUR ---
Patient titrated down to 1/2 liter 02 by respiratory therapist, 02 sats 96-97%, no acute respiratory distress.
[2022-02-19 11:39] LABS: BACTERIA,URINE FEW /HPF (NONE SEEN); RBC,URINE 20-50 /HPF (0-3); SQUAMOUS EPITHELIAL CELL,UR FEW /HPF (NONE SEEN)
--- NOTE | 2022-02-19 12:39 | NUR ---
patient VS stable, 02 sats 96% on 1/2 L 02 via NC. patient noted lethargic, mnetal status decrease as compared to this morning. Dr. Gamboa made aware with orders for ABG.
[2022-02-19 12:55] LABS: ABG BASE EXCESS -4.7 mmol/L; ABG HCO3 21.7 mmol/L; ABG PCO2 45.7 mmHg (35.0-45.0); ABG PH 7.294 (7.350-7.450); ABG PO2 81.3 mmHg (75.0-100.0); ABG SITE RIGHT BRACHIAL; ABG TOTAL HEMOGLOBIN 10.8 G/dL (13.5-18.0); MetHb 0.1 % (0.0-1.5); O2Hb 95.4 % (94.0-97.0); VENT MODE Nasal Cannula
[2022-02-19] MEDS: CEFEPIME HCL 2 G in IV DEXTROSE 5% 100 ML IV SCH (13:54)
--- NOTE | 2022-02-19 14:00 | NUR ---
Dr. Gamboa made aware of ABG results no new orders. Patient is more alert at this time. Still noted drowsy, no sob, or chest pain.
[2022-02-19 15:40] VITALS: BP 152/79
[2022-02-19] MEDS: FOLIC ACID/VITAMIN B COMP W-C TABLET PO SCH (17:12)
--- NOTE | 2022-02-19 19:35 | NUR ---
Patient awake no sob no chest pain, daughter at bedside, tele monitor sinus rhythm with frequent PVC/ trigeminy, no complain of pain at this time, on oxygen 1% NC, ralph cath patent draining with yellow color urine in moderate amount, on 1 liter sat 97%, cont to monitor.
[2022-02-19 20:30] VITALS: BP 146/65
[2022-02-19] MEDS: INSULIN GLARGINE,HUM 300 UNITS/3 ML CARTRIDGE SQ SCH (20:59)
[2022-02-20 00:02] VITALS: BP 128/65
[2022-02-20] MEDS: IPRATROPIUM BROMIDE 0.5 MG/2.5 ML NEBU NEB SCH ×4 (00:38→20:12)
[2022-02-20] MEDS: ALBUTEROL SULFATE 1.25 MG/3 ML NEBU NEB SCH ×2 (00:38→08:01)
--- NOTE | 2022-02-20 04:39 | NUR ---
Patient on Bipap as tolerated, encourage to keep the Bibap, given Tylenol 650mg for pain and comfort, tolerate well, no complain of pain.
[2022-02-20 04:50] VITALS: BP 116/61
[2022-02-20] MEDS: PANTOPRAZOLE SODIUM 40 MG TABLET.DR PO SCH (06:20)
[2022-02-20] MEDS: BLOOD SUGAR DIAGNOSTIC 1 EACH STRIP VI SCH ×4 (06:41→20:41)
[2022-02-20 06:48] LABS: HEMATOCRIT 29.5 % (36.7-47.1); MEAN CORPUSCULAR HEMOGLOBIN 30.7 uug (23.8-33.4); MEAN CORPUSCULAR VOLUME 90.1 fL (73.0-96.2); PLATELET COUNT (AUTO) 235 K/uL (152-348)
[2022-02-20 06:57] LABS: ABG BASE EXCESS -0.7 mmol/L; ABG HCO3 23.4 mmol/L; ABG PCO2 36.8 mmHg (35.0-45.0); ABG PH 7.422 (7.350-7.450); ABG PO2 80.2 mmHg (75.0-100.0); ABG SITE RIGHT RADIAL; ABG TOTAL HEMOGLOBIN 10.9 G/dL (13.5-18.0); COHb 0.3 % (0.5-1.5); MetHb 0.3 % (0.0-1.5); O2Hb 95.3 % (94.0-97.0); VENT MODE Nasal Cannula
--- NOTE | 2022-02-20 07:19 | NUR ---
Patient still on 0.5 liter of oxygen sat 92-100%. ON BIPAP tolerate well,daughter at bedside till this morning, tele monitor sinus rhythm with frequent pvc, cont to monitor.
--- NOTE | 2022-02-20 07:30 | NUR ---
Awake. O2 at 0.5 L/NC, not in distress
[2022-02-20 07:32] LABS: ALANINE AMINOTRANSFERASE 16 U/L (16-63); ALKALINE PHOSPHATASE 53 U/L (50-136); ASPARTATE AMINOTRANSFERASE 14 U/L (15-37); BILIRUBIN,TOTAL 0.6 mg/dL (0.2-1.0); CARBON DIOXIDE 24 mmol/L (21-32); CHLORIDE 94 mmol/L (98-107); CREATININE 4.4 mg/dL (0.6-1.3); GLUCOSE 76 mg/dL (74-106); PHOSPHOROUS 4.7 mg/dL (2.5-4.9); POTASSIUM 3.8 mmol/L (3.5-5.1); TOTAL PROTEIN, SERUM 5.3 g/dL (6.4-8.2)
[2022-02-20 07:55] LABS: MAGNESIUM 3.4 mg/dL (1.8-2.4)
[2022-02-20 08:00] LABS: UREA NITROGEN, BLOOD 105 mg/dL (7-18)
[2022-02-20] MEDS ORDERED: MODAFINIL 100 MG TABLET PO SCH (09:00)
--- NOTE | 2022-02-20 10:30 | NUR ---
Assisted out of bed with PT, ambulated in the hallway. Noted desaturation to 87%.
[2022-02-20] MEDS: SEVELAMER CARBONATE 800 MG TABLET PO SCH ×3 (10:34→17:19)
[2022-02-20] MEDS: ASPIRIN 81 MG TAB.CHEW PO SCH (10:34)
[2022-02-20] MEDS: ACIDOPHILUS/BULGARICUS CHEW TAB PO SCH ×2 (10:35→20:35)
[2022-02-20] MEDS: GUAIFENESIN LA 600 MG TABLET.SA PO SCH ×2 (10:36→20:35)
[2022-02-20 11:06] LABS: HEPATITIS B SURFACE AG Negative (Negative)
--- NOTE | 2022-02-20 11:46 | NUR ---
WOUND CARE CONSULT: PT SEEN FOR LEFT ARM SKIN TEAR AND ALSO NOTED TO HAVE GLUTEAL CREASE/INNER BUTTOCKS MOISTURE ASSOCIATED OPEN SKIN. PT NOTED TO HAVE MODERATE AMOUNT OF MUCUS DRAINAGE FROM ANAL AREA. RECOMMENDATIONS MADE FOR WOUND CARE AND SKIN PROTECTION. DISCUSSED WITH NURSING STAFF. MD IN AGREEMENT WITH PLAN OF CARE.
[2022-02-20] MEDS ORDERED: REMEDY ESSENTIAL ZINC PASTE 113 GM TOP PRN (12:00)
[2022-02-20 12:05] VITALS: BP 117/60
[2022-02-20] MEDS: LEVALBUTEROL HCL NEB 0.63 MG/3 ML NEBU NEB SCH ×2 (13:21→20:12)
[2022-02-20] MEDS: CEFEPIME HCL 2 G in IV DEXTROSE 5% 100 ML IV SCH (13:52)
[2022-02-20] MEDS: GUAIFENESIN/DEXTROMETHORPHAN 5 ML UDC PO PRN (14:01)
[2022-02-20 16:14] VITALS: BP 136/50
[2022-02-20] MEDS: FOLIC ACID/VITAMIN B COMP W-C TABLET PO SCH (17:19)
[2022-02-20] MEDS: INSULIN REGULAR, HUMAN 300 UNIT/3 ML VIAL SQ PRN ×2 (17:21→20:44)
--- NOTE | 2022-02-20 18:15 | NUR ---
Skin.wound care done as ordered. Repositioned comfortably
[2022-02-20] MEDS ORDERED: LORA2VIA6 IV (20:11)
[2022-02-20] MEDS ORDERED: CEFE2PIG2 IV (20:11)
[2022-02-20] MEDS ORDERED: FOLI0.8T2 PO (20:11)
[2022-02-20] MEDS ORDERED: ACET325T53 PO (20:11)
[2022-02-20] MEDS ORDERED: ACID1TAB4 PO (20:11)
[2022-02-20] MEDS ORDERED: MODA100T29 PO (20:11)
[2022-02-20] MEDS ORDERED: GUAI5SYR PO (20:11)
[2022-02-20] MEDS ORDERED: BISA10SU12 RC (20:11)
[2022-02-20] MEDS ORDERED: MENT113O TOP (20:11)
[2022-02-20] MEDS ORDERED: GUAI600T53 PO (20:11)
[2022-02-20] MEDS ORDERED: HYDR-3972 PO (20:11)
[2022-02-20] MEDS ORDERED: IPRA0.2S6 NEB (20:11)
[2022-02-20] MEDS ORDERED: LEVA0.635 NEB (20:11)
[2022-02-20] MEDS ORDERED: Insulin Glargine,Hum SQ (20:11)
[2022-02-20] MEDS ORDERED: TEMA15CA PO (20:11)
[2022-02-20] MEDS: INSULIN GLARGINE,HUM 300 UNITS/3 ML CARTRIDGE SQ SCH (20:45)
[2022-02-20] MEDS ORDERED: REMEDY ESSENTIAL ZINC PASTE 113 GM TOP SCH (21:00)
[2022-02-21] MEDS ORDERED: INSU100V7 SQ (14:05)
[2022-02-22 06:06] LABS: *ANTI-SCLERODERMA-70 AB <0.2 AI (0.0-0.9); *SJOGREN'S ANTI-SS-A <0.2 AI (0.0-0.9); *SJOGREN'S ANTI-SS-B <0.2 AI (0.0-0.9); *SMITH ANTIBODIES <0.2 AI (0.0-0.9); ANTI-DNA(DS) AB, QN <1 IU/mL (0-9)
== END 2022-02-20 21:25 | DRG 871 ==
LOC: ER 18:07 → ICU 23:04 → CCU 02-15 00:23 → TELE-TD3 02-15 20:20 → TELE3 02-16 11:15
PROVIDERS: ADMIT Nurse Practitioner Acute Care; ATTEND Nurse Practitioner Acute Care
PROC: 5A09457 Assistance with Respiratory Ventilation, 24-96 Consecutive Hours, Continuous Positive Airway Pressure (ICD-10-PCS; principal; 2022-02-15)
DX: A41.9 Sepsis, unspecified organism (principal); G92.8 Other toxic encephalopathy; J69.0 Pneumonitis due to inhalation of food and vomit; J96.21 Acute and chronic respiratory failure with hypoxia; J96.22 Acute and chronic respiratory failure with hypercapnia; N17.0 Acute kidney failure with tubular necrosis; I62.00 Nontraumatic subdural hemorrhage, unspecified; E22.2 Syndrome of inappropriate secretion of antidiuretic hormone; D68.59 Other primary thrombophilia; I13.0 Hypertensive heart and chronic kidney disease with heart failure and stage 1 through stage 4 chronic kidney disease, or unspecified chronic kidney disease; N39.0 Urinary tract infection, site not specified; N18.4 Chronic kidney disease, stage 4 (severe); J98.11 Atelectasis; E87.2 Acidosis; E87.1 Hypo-osmolality and hyponatremia; K56.41 Fecal impaction; G47.33 Obstructive sleep apnea (adult) (pediatric); E11.22 Type 2 diabetes mellitus with diabetic chronic kidney disease; E11.65 Type 2 diabetes mellitus with hyperglycemia; M19.90 Unspecified osteoarthritis, unspecified site; Z74.09 Other reduced mobility; D63.8 Anemia in other chronic diseases classified elsewhere; I50.9 Heart failure, unspecified; I48.91 Unspecified atrial fibrillation; Z85.46 Personal history of malignant neoplasm of prostate; U09.9 Post COVID-19 condition, unspecified; I25.10 Atherosclerotic heart disease of native coronary artery without angina pectoris; E78.5 Hyperlipidemia, unspecified; E86.1 Hypovolemia; E87.8 Other disorders of electrolyte and fluid balance, not elsewhere classified; F03.90 Unspecified dementia, unspecified severity, without behavioral disturbance, psychotic disturbance, mood disturbance, and anxiety; Z79.01 Long term (current) use of anticoagulants; Y95 Nosocomial condition; I44.4 Left anterior fascicular block; N28.1 Cyst of kidney, acquired; M48.8X9 Other specified spondylopathies, site unspecified; J44.9 Chronic obstructive pulmonary disease, unspecified; R91.8 Other nonspecific abnormal finding of lung field; Z87.891 Personal history of nicotine dependence
CPT/HCPCS: 36415; 36600; 70450; 71045; 76770; 82533; 82803; 83520; 83605; 83735; 83930; 83935; 84100; 84153; 84156; 84300; 84443; 84484; 84550; 85025; 85651; 85730; 86038; 86160; 86256; 86706; 86803; 87040; 87086; 87340; 93005; 93307; 94640; 94660; 94760; 97161; 99082-TC; A4663; A6209; A6213; C9113; G0378; G0480; J0692; J1815; J1956; J2060; J2185; J2270; J2543; J3590; J7614

== ENCOUNTER 2022-02-20 21:35 | Inpatient (IN) | payer MEDICARE, OTHER ==
[~2022-02-20] VITALS: Ht 182.9 cm; Wt 89.9 kg
[~2022-02-20 21:35] MED LIST: ACET-73 PO; ACET325T53 PO; ACID1TAB4 PO; ALBU18HF2 INH; ASPI81TA31 PO; BENZ200C53 PO; BISA10SU12 RC; CARV6.252 PO; CEFE2PIG2 IV; DEXA4TAB PO; FOLI0.8T2 PO; GUAI5SYR PO; GUAI600T53 PO; HYDR-3972 PO; INSU300I3 SQ; IPRA0.2S6 NEB; Insulin Glargine,Hum SQ; LEVA0.635 NEB; LORA2VIA6 IV; MENT113O TOP; MODA100T29 PO; NATE120T6 PO; ROSU20TA2 PO; SEVE800T8 PO; TEMA15CA PO; VIT1TABL46 PO
[2022-02-20] MEDS ORDERED: LORAZEPAM 2 MG/1 ML VIAL IV PRN (21:45)
[2022-02-20] MEDS ORDERED: HYDROCODONE/APAP 5-325MG TABLET PO PRN (21:45)
[2022-02-20] MEDS ORDERED: BISACODYL 10 MG SUPP.RECT RC PRN (21:45)
[2022-02-20] MEDS ORDERED: TEMAZEPAM 15 MG CAPSULE PO PRN (21:45)
[2022-02-20] MEDS ORDERED: GUAIFENESIN/DEXTROMETHORPHAN 5 ML UDC PO PRN (21:45)
[2022-02-20] MEDS ORDERED: REMEDY ESSENTIAL ZINC PASTE 113 GM TOP PRN (21:45)
[2022-02-20 23:19] VITALS: BP 145/61
[2022-02-21] MEDS: IPRATROPIUM BROMIDE 0.5 MG/2.5 ML NEBU NEB SCH ×4 (01:12→19:41)
[2022-02-21] MEDS ORDERED: LEVALBUTEROL HCL NEB 0.63 MG/3 ML NEBU NEB SCH (01:30)
--- NOTE | 2022-02-21 02:14 | NUR ---
Admission report received from outgoing nurse. Routine admission care done. Plan of care initiated.
[2022-02-21 04:00] VITALS: BP 153/72
[2022-02-21] MEDS ORDERED: LORAZEPAM 2 MG/1 ML VIAL IV PRN (05:30)
[2022-02-21] MEDS ORDERED: TEMAZEPAM 15 MG CAPSULE PO PRN (05:30)
[2022-02-21] MEDS ORDERED: GUAIFENESIN/DEXTROMETHORPHAN 5 ML UDC PO PRN (05:30)
[2022-02-21] MEDS: ALBUTEROL SULFATE 1.25 MG/3 ML NEBU NEB SCH ×3 (06:09→19:41)
[2022-02-21] MEDS ORDERED: DEXTROSE 50% 50 ML DISP.SYRIN IV PRN (08:00)
[2022-02-21 08:58] VITALS: BP 120/59
[2022-02-21] MEDS ORDERED: CALMOSEPTINE 113 GM OINTMENT TOP SCH (09:00)
[2022-02-21] MEDS: SEVELAMER CARBONATE 800 MG TABLET PO SCH ×3 (09:29→17:20)
[2022-02-21] MEDS ORDERED: LORAZEPAM 0.5 MG TABLET PO PRN (09:30)
[2022-02-21] MEDS: MODAFINIL 100 MG TABLET PO SCH (09:30)
[2022-02-21] MEDS: ASPIRIN 81 MG TAB.CHEW PO SCH (09:30)
[2022-02-21] MEDS: ACIDOPHILUS/BULGARICUS CHEW TAB PO SCH ×2 (09:30→20:28)
[2022-02-21] MEDS: REMEDY ESSENTIAL ZINC PASTE 113 GM TOP SCH ×2 (09:34→20:34)
[2022-02-21] MEDS: GUAIFENESIN LA 600 MG TABLET.SA PO SCH ×2 (09:34→20:28)
[2022-02-21 10:04] LABS: HEMATOCRIT 32.4 % (36.7-47.1); MEAN CORPUSCULAR HEMOGLOBIN 30.8 uug (23.8-33.4); MEAN CORPUSCULAR VOLUME 90.8 fL (73.0-96.2); PLATELET COUNT (AUTO) 272 K/uL (152-348)
[2022-02-21 10:15] LABS: ALANINE AMINOTRANSFERASE 9 U/L (16-63); ALKALINE PHOSPHATASE 71 U/L (50-136); ASPARTATE AMINOTRANSFERASE 11 U/L (15-37); BILIRUBIN,TOTAL 0.6 mg/dL (0.2-1.0); CARBON DIOXIDE 27 mmol/L (21-32); CHLORIDE 98 mmol/L (98-107); CREATININE 4.6 mg/dL (0.6-1.3); GLUCOSE 126 mg/dL (74-106); MAGNESIUM 3.1 mg/dL (1.8-2.4); PHOSPHOROUS 4.5 mg/dL (2.5-4.9); POTASSIUM 3.7 mmol/L (3.5-5.1); TOTAL PROTEIN, SERUM 5.9 g/dL (6.4-8.2)
[2022-02-21 10:21] LABS: UREA NITROGEN, BLOOD 104 mg/dL (7-18)
--- NOTE | 2022-02-21 10:36 | NUR ---
WOUND CARE CONSULT: PT PRESENTS WITH LEFT ARM DRY ABRASION AND MOISTURE ASSOCIATED OPEN SKIN TO GLUTEAL CREASE/INNER BUTTOCKS, PRESENT ON ADMISSION. PT NOTED TO HAVE MODERATE AMOUNT OF MUCUS DISCHARGE FROM ANAL AREA. RECOMMENDATIONS MADE FOR SKIN PROTECTION. DISCUSSED WITH NURSING STAFF. FIRST STEP LOW AIRLOSS MATTRESS IS ON ORDER. MD IN AGREEMENT WITH PLAN OF CARE.
[2022-02-21] MEDS: BLOOD SUGAR DIAGNOSTIC 1 EACH STRIP VI SCH ×3 (11:51→20:33)
--- NOTE | 2022-02-21 11:54 | NUR ---
Dr. Stanford in the unit and received an order for KUB X-Ray for constipation.
[2022-02-21] MEDS: INSULIN REGULAR, HUMAN 300 UNIT/3 ML VIAL SQ PRN ×3 (12:10→20:38)
[2022-02-21] MEDS ORDERED: CEFEPIME HCL 2 G in IV DEXTROSE 5% 100 ML IV SCH (14:00)
[2022-02-21] MEDS ORDERED: INSU100V7 SQ (14:05)
--- NOTE | 2022-02-21 15:32 | NUR ---
INTERDISCIPLINARY TEAM CONFERENCE
[2022-02-21 16:43] VITALS: BP 151/69
[2022-02-21] MEDS: FOLIC ACID/VITAMIN B COMP W-C TABLET PO SCH (17:40)
--- NOTE | 2022-02-21 19:30 | NUR ---
Received pt in no acute distress. Endorsed that pt is dizzy. Notify Dr quarry supervisor dimension stone. Waiting for reply. Assessed pt he stated he felt better. Iv intact. Safety and comfort provided. Will continue to monitor.
[2022-02-21 20:00] VITALS: BP 154/65
[2022-02-21] MEDS: ACETAMINOPHEN 325 MG TABLET PO PRN (20:28)
[2022-02-21] MEDS: INSULIN GLARGINE,HUM 300 UNITS/3 ML CARTRIDGE SQ SCH (20:37)
--- NOTE | 2022-02-21 21:30 | NUR ---
Pt given Ativan 0.5mg AT 2027h for restlessness and agitation. Pt given tylenol 650 mg prn for generalized pain. Pt tolerated it well. After an hour pt stated he felt better and needed his BIpap. Called RT to assist in putting BIpap.
[2022-02-21 21:38] VITALS: BP 137/60
--- NOTE | 2022-02-21 21:45 | NUR ---
Notify Dr regarding pt dizzy and maybe needing prn meds. Dr. Gamboa ordered to monitor pt and no new orders.
--- NOTE | 2022-02-21 22:00 | NUR ---
Son of the pt called and given update regarding his dad. Son wants if we can put pt on room air for the whole night or nasal cannula. Told son we will assessed the pt throughout the shift.
--- NOTE | 2022-02-21 23:00 | NUR ---
Notify vice president corporate communications regarding pt might need prn dizzy meds. Thuan CUSTOMER SUCCESS MANAGER asked to do orthostatic blood pressure for the pt. Notify Thuan that pt sleepy and on Bipap already. Operational Review Sergeant aware.
[2022-02-22] MEDS: ALBUTEROL SULFATE 1.25 MG/3 ML NEBU NEB SCH ×4 (01:13→20:03)
[2022-02-22] MEDS: IPRATROPIUM BROMIDE 0.5 MG/2.5 ML NEBU NEB SCH ×4 (01:13→20:03)
--- NOTE | 2022-02-22 05:26 | NUR ---
RECEIVED PATIENT ON ROOM AIR. @ 1920 PATIENT STATED THAT HE WAS FEELING UNWELL, DIZZY, AND THAT HIS BREATHING WAS NOT "RIGHT". RN INFORMED, MESSAGED PER RN. VITAL SIGNS WITHIN NORMAL LIMITS, RESPIRATORY RATE ~ 24BPM. CONTINUOUS PULSE OX AT BEDSIDE READING SPO2 > 94% ON ROOM AIR. HHN TREATMENT ADMINISTERED AND TOLERATED WELL. OFFERED BIPAP TO MR HERRERA TO IMPROVE HIS BREATHING. PATIENT AGREED AND WAS SUBSEQUENTLY PLACED ON BIPAP 10/12. NO COMPLICATIONS NOTED. PATIENT FELL ASLEEP SHORTLY AFTER AND HAS HAD NO EPISODES OF SOB/TACHYCARDIA/ OR DESATURATIONS THROUGH OUT THE NIGHT. MASK ADJUSTED THROUGHOUT SHIFT FOR SKIN INTEGRITY. BIPAP ALARMS ARE ON/AUDIBLE, PLUGGED IN TO RED OUTLET. REMOVED OFF BIPAP AT 0500AM. REMAINS ON ROOM AIR, NO SOB NOTED. RN INFORMED. WILL CONTINUE TO MONITOR.
--- NOTE | 2022-02-22 06:13 | NUR ---
Pt in no acute distress. Pt tolerating BIPAP at night. Pt assessed and pt sleeping comfortably on BIPAP. Prescribed medication given and pt tolerated it well. Pt placed on first step mattress.Safety and comfort provided. Pt turned and repositioned. Rendered good skin care. All needs are met. . Will endorse to incoming nurse for continuity of care.
[2022-02-22 06:29] LABS: HEMATOCRIT 31.2 % (36.7-47.1); MEAN CORPUSCULAR HEMOGLOBIN 30.6 uug (23.8-33.4); MEAN CORPUSCULAR VOLUME 91.7 fL (73.0-96.2); PLATELET COUNT (AUTO) 241 K/uL (152-348)
[2022-02-22] MEDS: BLOOD SUGAR DIAGNOSTIC 1 EACH STRIP VI SCH ×4 (06:33→20:43)
[2022-02-22 06:44] LABS: CARBON DIOXIDE 29 mmol/L (21-32); CHLORIDE 99 mmol/L (98-107); CREATININE 4.3 mg/dL (0.6-1.3); GLUCOSE 110 mg/dL (74-106); PHOSPHOROUS 4.7 mg/dL (2.5-4.9); POTASSIUM 3.6 mmol/L (3.5-5.1)
[2022-02-22 06:48] LABS: UREA NITROGEN, BLOOD 101 mg/dL (7-18)
[2022-02-22 07:30] VITALS: BP 116/58
[2022-02-22 07:42] LABS: ABG BASE EXCESS -4.4 mmol/L; ABG HCO3 21.2 mmol/L; ABG PCO2 40.9 mmHg (35.0-45.0); ABG PH 7.332 (7.350-7.450); ABG PO2 66.5 mmHg (75.0-100.0); ABG SITE LEFT RADIAL; COHb 0.4 % (0.5-1.5); MetHb 0.3 % (0.0-1.5); VENT MODE Room Air
[2022-02-22] MEDS: ACIDOPHILUS/BULGARICUS CHEW TAB PO SCH ×2 (08:39→20:38)
[2022-02-22] MEDS: MODAFINIL 100 MG TABLET PO SCH (08:39)
[2022-02-22] MEDS: SEVELAMER CARBONATE 800 MG TABLET PO SCH ×3 (08:39→17:38)
[2022-02-22] MEDS: ASPIRIN 81 MG TAB.CHEW PO SCH (08:39)
[2022-02-22] MEDS: GUAIFENESIN LA 600 MG TABLET.SA PO SCH ×2 (08:40→20:38)
[2022-02-22] MEDS: REMEDY ESSENTIAL ZINC PASTE 113 GM TOP SCH ×2 (08:44→20:38)
--- NOTE | 2022-02-22 10:30 | NUR ---
Orthostatic BP taken while with PT. BP while sitting 121/54, HR 97. BP while standing 64/42 HR 100 and patient complained of dizziness. Patient assisted to sit back on chair, BP 105/[address] Gamboa in the unit, informed MD regarding symptoms. Per MD continue to monitor for now. Also received an order to discontinue Modafinil.
[2022-02-22] MEDS: INSULIN REGULAR, HUMAN 300 UNIT/3 ML VIAL SQ PRN ×3 (12:13→20:44)
[2022-02-22 16:00] VITALS: BP 107/59
[2022-02-22] MEDS: FOLIC ACID/VITAMIN B COMP W-C TABLET PO SCH (17:38)
[2022-02-22 20:00] VITALS: BP 138/58
[2022-02-22] MEDS: INSULIN GLARGINE,HUM 300 UNITS/3 ML CARTRIDGE SQ SCH (20:44)
[2022-02-23] MEDS: IPRATROPIUM BROMIDE 0.5 MG/2.5 ML NEBU NEB SCH ×4 (01:00→20:51)
[2022-02-23] MEDS: ALBUTEROL SULFATE 1.25 MG/3 ML NEBU NEB SCH ×4 (01:00→20:51)
[2022-02-23 04:00] VITALS: BP 135/65
[2022-02-23] MEDS: BLOOD SUGAR DIAGNOSTIC 1 EACH STRIP VI SCH ×4 (06:34→21:58)
--- NOTE | 2022-02-23 06:34 | NUR ---
Accucheck done, first BS 42, strip not enough blood. Taken again, BS 60. Pt is alert and oriented x3, able to make needs known. [place] juice given, BS 71 when rechecked.
[2022-02-23] MEDS: SEVELAMER CARBONATE 800 MG TABLET PO SCH ×3 (08:06→17:17)
[2022-02-23] MEDS: ASPIRIN 81 MG TAB.CHEW PO SCH (08:06)
[2022-02-23] MEDS: GUAIFENESIN LA 600 MG TABLET.SA PO SCH ×2 (08:06→21:27)
[2022-02-23] MEDS: ACIDOPHILUS/BULGARICUS CHEW TAB PO SCH ×2 (08:06→21:27)
[2022-02-23] MEDS: REMEDY ESSENTIAL ZINC PASTE 113 GM TOP SCH ×2 (08:07→21:27)
[2022-02-23 08:20] VITALS: BP 124/52
--- NOTE | 2022-02-23 14:56 | NUR ---
INDIVIDUALIZED PLAN OF CARE
[2022-02-23 17:12] VITALS: BP 120/53
[2022-02-23] MEDS: FOLIC ACID/VITAMIN B COMP W-C TABLET PO SCH (17:17)
--- NOTE | 2022-02-23 19:15 | NUR ---
Received patient on bed, awake, with the son at the bedside, not in labored breathing, on room air. compliant with the treatment regimen, Safety precautions provided, call light placed within reach.
[2022-02-23 20:00] VITALS: BP 132/59
[2022-02-23] MEDS: TEMAZEPAM 7.5 MG CAPSULE PO PRN (21:30)
[2022-02-23] MEDS: INSULIN REGULAR, HUMAN 300 UNIT/3 ML VIAL SQ PRN (21:45)
[2022-02-23] MEDS: INSULIN GLARGINE,HUM 300 UNITS/3 ML CARTRIDGE SQ SCH (21:57)
[2022-02-24] MEDS: ALBUTEROL SULFATE 1.25 MG/3 ML NEBU NEB SCH ×4 (01:04→20:00)
[2022-02-24] MEDS: IPRATROPIUM BROMIDE 0.5 MG/2.5 ML NEBU NEB SCH ×4 (01:04→20:00)
[2022-02-24 04:00] VITALS: BP 122/60
--- NOTE | 2022-02-24 04:05 | NUR ---
PATIENT WAS ON ROOM AIR GIVEN NEB RX, PT PLACED ON BI/PAP APPROX, 00:05, WITH XL MASK, WITH SETTINGS, 15/5, R18, FIO2 25%, PT SEMI AWAKE, ADJUST MASK AT TIMES, PULSE OXY AT BED SIDE 97-98%. Carisa STOKES RCP Addendum: 02/24/22 at 0411 by DEANGELO STOKES RT Amended: Links added.
--- NOTE | 2022-02-24 05:19 | NUR ---
Slept well within the shift, not in labored breathing, on BIPAP at night. No complaint of pain, for continuity of care.
[2022-02-24] MEDS: BLOOD SUGAR DIAGNOSTIC 1 EACH STRIP VI SCH ×4 (06:14→21:00)
[2022-02-24] MEDS: INSULIN REGULAR, HUMAN 300 UNIT/3 ML VIAL SQ PRN ×3 (07:53→17:07)
[2022-02-24 08:00] VITALS: BP 135/59
[2022-02-24] MEDS: GUAIFENESIN LA 600 MG TABLET.SA PO SCH ×2 (08:06→21:48)
[2022-02-24] MEDS: ACIDOPHILUS/BULGARICUS CHEW TAB PO SCH ×2 (08:06→21:47)
[2022-02-24] MEDS: REMEDY ESSENTIAL ZINC PASTE 113 GM TOP SCH ×2 (08:06→22:00)
[2022-02-24] MEDS: SEVELAMER CARBONATE 800 MG TABLET PO SCH ×3 (08:06→17:06)
[2022-02-24] MEDS: ASPIRIN 81 MG TAB.CHEW PO SCH (08:06)
[2022-02-24 16:21] VITALS: BP 132/63
[2022-02-24] MEDS: FOLIC ACID/VITAMIN B COMP W-C TABLET PO SCH (17:06)
[2022-02-24 20:00] VITALS: BP 151/66
[2022-02-24] MEDS: INSULIN GLARGINE,HUM 300 UNITS/3 ML CARTRIDGE SQ SCH (21:59)
[2022-02-25] MEDS: IPRATROPIUM BROMIDE 0.5 MG/2.5 ML NEBU NEB SCH ×4 (00:16→21:50)
[2022-02-25] MEDS: ALBUTEROL SULFATE 1.25 MG/3 ML NEBU NEB SCH ×4 (00:17→21:50)
--- NOTE | 2022-02-25 02:00 | NUR ---
Pt requested to remove Bipap. Unable to sleep with it.
[2022-02-25 05:43] VITALS: BP 109/56
[2022-02-25] MEDS: BLOOD SUGAR DIAGNOSTIC 1 EACH STRIP VI SCH ×4 (06:41→21:29)
[2022-02-25 07:23] LABS: HEMATOCRIT 28.6 % (36.7-47.1); MEAN CORPUSCULAR HEMOGLOBIN 30.8 uug (23.8-33.4); MEAN CORPUSCULAR VOLUME 90.9 fL (73.0-96.2); PLATELET COUNT (AUTO) 253 K/uL (152-348)
[2022-02-25 07:30] VITALS: BP 141/57
[2022-02-25 07:36] LABS: ALANINE AMINOTRANSFERASE 14 U/L (16-63); ALKALINE PHOSPHATASE 74 U/L (50-136); ASPARTATE AMINOTRANSFERASE 9 U/L (15-37); BILIRUBIN,TOTAL 0.5 mg/dL (0.2-1.0); CARBON DIOXIDE 31 mmol/L (21-32); CHLORIDE 102 mmol/L (98-107); GLUCOSE 85 mg/dL (74-106); MAGNESIUM 3.1 mg/dL (1.8-2.4); PHOSPHOROUS 5.2 mg/dL (2.5-4.9); POTASSIUM 3.9 mmol/L (3.5-5.1); TOTAL PROTEIN, SERUM 5.5 g/dL (6.4-8.2)
[2022-02-25 08:27] LABS: UREA NITROGEN, BLOOD 98 mg/dL (7-18)
[2022-02-25] MEDS: GUAIFENESIN LA 600 MG TABLET.SA PO SCH ×2 (09:23→21:19)
[2022-02-25] MEDS: ACIDOPHILUS/BULGARICUS CHEW TAB PO SCH ×2 (09:24→21:18)
[2022-02-25] MEDS: SEVELAMER CARBONATE 800 MG TABLET PO SCH ×3 (09:24→16:50)
[2022-02-25] MEDS: REMEDY ESSENTIAL ZINC PASTE 113 GM TOP SCH ×2 (09:25→21:29)
[2022-02-25] MEDS: ASPIRIN 81 MG TAB.CHEW PO SCH (09:28)
[2022-02-25] MEDS: INSULIN REGULAR, HUMAN 300 UNIT/3 ML VIAL SQ PRN ×3 (13:36→21:38)
[2022-02-25 16:00] VITALS: BP 126/63
[2022-02-25] MEDS: FOLIC ACID/VITAMIN B COMP W-C TABLET PO SCH (16:51)
--- NOTE | 2022-02-25 19:13 | NUR ---
pt and family request to have bipap d/c at night. c/o inability to sleep due to the bipap to noisy and uncomfortable on his face. notified and says okay to try d/c.
--- NOTE | 2022-02-25 19:30 | NUR ---
Received pt awake, alert and orientedx4. Pt in no acute distress. Pt no complaint of pain. Safety precautions provided. Valdez catheter intact and draining well. Pt iv intact. Will continue to monitor.
[2022-02-25 20:00] VITALS: BP 128/64
[2022-02-25] MEDS: ACETAMINOPHEN 325 MG TABLET PO PRN (21:18)
[2022-02-25] MEDS: INSULIN GLARGINE,HUM 300 UNITS/3 ML CARTRIDGE SQ SCH (21:39)
[2022-02-26] MEDS: ALBUTEROL SULFATE 1.25 MG/3 ML NEBU NEB SCH ×4 (00:21→19:24)
[2022-02-26] MEDS: IPRATROPIUM BROMIDE 0.5 MG/2.5 ML NEBU NEB SCH ×4 (00:21→19:24)
[2022-02-26 04:00] VITALS: BP 118/64
--- NOTE | 2022-02-26 05:36 | NUR ---
Pt slept intermittently. No significant changes noted.Prescribed medication given and pt tolerated it well. Dressing changed. Pt turned and repositioned.Pt had 2 bowel movement. . Valdez catheter intact and draining well. Pt iv intact. All needs attended. Call light placed within reach. Will endorse to next shift for continuity of care.
[2022-02-26] MEDS: BLOOD SUGAR DIAGNOSTIC 1 EACH STRIP VI SCH ×4 (06:39→20:50)
--- NOTE | 2022-02-26 06:39 | NUR ---
Go t 103 blood sugar . Pt in no acute distress. Will endorse to incoming nurse.
[2022-02-26 07:31] VITALS: BP 144/51
[2022-02-26] MEDS: SEVELAMER CARBONATE 800 MG TABLET PO SCH ×3 (08:06→18:03)
[2022-02-26] MEDS: ASPIRIN 81 MG TAB.CHEW PO SCH (08:06)
[2022-02-26] MEDS: ACIDOPHILUS/BULGARICUS CHEW TAB PO SCH ×2 (08:06→20:46)
[2022-02-26] MEDS: GUAIFENESIN LA 600 MG TABLET.SA PO SCH ×2 (08:06→20:46)
[2022-02-26] MEDS: GLUCERNA SHAKE 237 ML CAN PO SCH (10:19)
[2022-02-26] MEDS: REMEDY ESSENTIAL ZINC PASTE 113 GM TOP SCH ×2 (10:19→20:50)
[2022-02-26] MEDS: INSULIN REGULAR, HUMAN 300 UNIT/3 ML VIAL SQ PRN ×3 (11:32→20:52)
[2022-02-26 16:00] VITALS: BP 107/59
[2022-02-26] MEDS: FOLIC ACID/VITAMIN B COMP W-C TABLET PO SCH (18:03)
[2022-02-26 20:00] VITALS: BP 128/44
[2022-02-26] MEDS: INSULIN GLARGINE,HUM 300 UNITS/3 ML CARTRIDGE SQ SCH (20:51)
[2022-02-27] MEDS: IPRATROPIUM BROMIDE 0.5 MG/2.5 ML NEBU NEB SCH ×5 (00:57→19:51)
[2022-02-27] MEDS: ALBUTEROL SULFATE 1.25 MG/3 ML NEBU NEB SCH ×5 (00:58→19:51)
--- NOTE | 2022-02-27 01:00 | NUR ---
PT REFUSED MED AT THIS TIME. PT STATED THAT HE DID NOT WANT TO BE WOKEN UP. SPO2 92% NO SOB NOTED AT THIS TIME. WILL CONT TO MONITOR PT.
[2022-02-27] MEDS: BLOOD SUGAR DIAGNOSTIC 1 EACH STRIP VI SCH ×4 (06:47→20:08)
--- NOTE | 2022-02-27 06:47 | NUR ---
BS 72 mg/dl. Denies any s/s of hypoglycemia but patient stated "that's terrible". When asked he said it is low. [place] juice was given. Will endorse to oncoming nurse.
[2022-02-27 07:06] VITALS: BP 106/53
[2022-02-27 07:51] VITALS: BP 122/49
[2022-02-27] MEDS: REMEDY ESSENTIAL ZINC PASTE 113 GM TOP SCH ×2 (08:04→21:24)
[2022-02-27] MEDS: GUAIFENESIN LA 600 MG TABLET.SA PO SCH ×2 (08:04→20:08)
[2022-02-27] MEDS: ASPIRIN 81 MG TAB.CHEW PO SCH (08:04)
[2022-02-27] MEDS: ACIDOPHILUS/BULGARICUS CHEW TAB PO SCH ×2 (08:04→20:08)
[2022-02-27] MEDS: GLUCERNA SHAKE 237 ML CAN PO SCH (08:04)
[2022-02-27] MEDS: SEVELAMER CARBONATE 800 MG TABLET PO SCH ×3 (08:04→17:17)
[2022-02-27] MEDS: INSULIN REGULAR, HUMAN 300 UNIT/3 ML VIAL SQ PRN ×3 (11:08→20:09)
[2022-02-27 15:06] VITALS: BP 105/59
[2022-02-27] MEDS: FOLIC ACID/VITAMIN B COMP W-C TABLET PO SCH (17:17)
[2022-02-27 20:00] VITALS: BP 161/85
[2022-02-27] MEDS: INSULIN GLARGINE,HUM 300 UNITS/3 ML CARTRIDGE SQ SCH (20:10)
[2022-02-28] MEDS: ALBUTEROL SULFATE 1.25 MG/3 ML NEBU NEB SCH ×4 (01:14→19:46)
[2022-02-28] MEDS: IPRATROPIUM BROMIDE 0.5 MG/2.5 ML NEBU NEB SCH ×4 (01:14→19:46)
[2022-02-28 04:00] VITALS: BP 155/80
[2022-02-28] MEDS: BLOOD SUGAR DIAGNOSTIC 1 EACH STRIP VI SCH ×4 (06:08→20:13)
[2022-02-28 06:09] LABS: HEMATOCRIT 31.1 % (36.7-47.1); MEAN CORPUSCULAR HEMOGLOBIN 30.7 uug (23.8-33.4); MEAN CORPUSCULAR VOLUME 92.4 fL (73.0-96.2); PLATELET COUNT (AUTO) 249 K/uL (152-348)
[2022-02-28 06:31] LABS: CARBON DIOXIDE 27 mmol/L (21-32); CHLORIDE 100 mmol/L (98-107); CREATININE 3.6 mg/dL (0.6-1.3); GLUCOSE 100 mg/dL (74-106); MAGNESIUM 3.3 mg/dL (1.8-2.4); PHOSPHOROUS 5.2 mg/dL (2.5-4.9); POTASSIUM 4.7 mmol/L (3.5-5.1)
[2022-02-28 06:36] LABS: UREA NITROGEN, BLOOD 99 mg/dL (7-18)
[2022-02-28 08:08] VITALS: BP 120/66
[2022-02-28] MEDS: ASPIRIN 81 MG TAB.CHEW PO SCH (08:14)
[2022-02-28] MEDS: ACIDOPHILUS/BULGARICUS CHEW TAB PO SCH ×2 (08:15→20:08)
[2022-02-28] MEDS: SEVELAMER CARBONATE 800 MG TABLET PO SCH ×3 (08:15→17:21)
[2022-02-28] MEDS: GUAIFENESIN LA 600 MG TABLET.SA PO SCH ×2 (08:15→20:08)
[2022-02-28] MEDS: REMEDY ESSENTIAL ZINC PASTE 113 GM TOP SCH ×2 (08:15→20:08)
[2022-02-28] MEDS: GLUCERNA SHAKE 237 ML CAN PO SCH (08:17)
[2022-02-28] MEDS: INSULIN REGULAR, HUMAN 300 UNIT/3 ML VIAL SQ PRN ×4 (08:19→20:15)
--- NOTE | 2022-02-28 11:00 | NUR ---
MD Dr. Grijalva made aware of low fasting blood sugar this morning 52 and fasting blood sugar of 65 the morning before. Orders noted and carried out to MARCO ANTONIO hooper.
[2022-02-28 11:55] VITALS: BP 147/64
--- NOTE | 2022-02-28 14:37 | NUR ---
INTERDISCIPLINARY TEAM CONFERENCE
[2022-02-28 16:15] VITALS: BP 102/62
[2022-02-28] MEDS: FOLIC ACID/VITAMIN B COMP W-C TABLET PO SCH (17:24)
[2022-02-28 20:00] VITALS: BP 135/70
[2022-03-01] MEDS: ALBUTEROL SULFATE 1.25 MG/3 ML NEBU NEB SCH ×4 (01:18→19:29)
[2022-03-01] MEDS: IPRATROPIUM BROMIDE 0.5 MG/2.5 ML NEBU NEB SCH ×4 (01:18→19:29)
[2022-03-01 04:00] VITALS: BP 128/62
[2022-03-01 06:09] LABS: HEMATOCRIT 29.1 % (36.7-47.1); MEAN CORPUSCULAR HEMOGLOBIN 31.1 uug (23.8-33.4); MEAN CORPUSCULAR VOLUME 91.8 fL (73.0-96.2); PLATELET COUNT (AUTO) 255 K/uL (152-348)
[2022-03-01] MEDS: BLOOD SUGAR DIAGNOSTIC 1 EACH STRIP VI SCH ×4 (06:19→20:47)
[2022-03-01 06:36] LABS: CARBON DIOXIDE 31 mmol/L (21-32); CHLORIDE 99 mmol/L (98-107); CREATININE 3.6 mg/dL (0.6-1.3); GLUCOSE 182 mg/dL (74-106); PHOSPHOROUS 4.6 mg/dL (2.5-4.9); POTASSIUM 4.9 mmol/L (3.5-5.1)
[2022-03-01 06:43] LABS: UREA NITROGEN, BLOOD 98 mg/dL (7-18)
[2022-03-01] MEDS: INSULIN REGULAR, HUMAN 300 UNIT/3 ML VIAL SQ PRN ×4 (08:04→20:48)
[2022-03-01] MEDS: ASPIRIN 81 MG TAB.CHEW PO SCH (09:34)
[2022-03-01] MEDS: GUAIFENESIN LA 600 MG TABLET.SA PO SCH ×2 (09:35→20:41)
[2022-03-01] MEDS: ACIDOPHILUS/BULGARICUS CHEW TAB PO SCH ×2 (09:35→20:41)
[2022-03-01] MEDS: REMEDY ESSENTIAL ZINC PASTE 113 GM TOP SCH ×2 (09:35→20:42)
[2022-03-01] MEDS: GLUCERNA SHAKE 237 ML CAN PO SCH (09:35)
[2022-03-01] MEDS: SEVELAMER CARBONATE 800 MG TABLET PO SCH ×3 (09:36→17:14)
[2022-03-01 11:00] VITALS: BP 136/68
[2022-03-01 16:00] VITALS: BP 140/67
[2022-03-01] MEDS: FOLIC ACID/VITAMIN B COMP W-C TABLET PO SCH (17:14)
[2022-03-01 20:12] VITALS: BP 138/70
[2022-03-02] MEDS: IPRATROPIUM BROMIDE 0.5 MG/2.5 ML NEBU NEB SCH ×4 (01:16→19:37)
[2022-03-02] MEDS: ALBUTEROL SULFATE 1.25 MG/3 ML NEBU NEB SCH ×4 (01:16→19:37)
[2022-03-02 04:00] VITALS: BP 110/55
[2022-03-02] MEDS: BLOOD SUGAR DIAGNOSTIC 1 EACH STRIP VI SCH ×4 (06:48→20:43)
[2022-03-02 08:00] VITALS: BP 125/87
--- NOTE | 2022-03-02 08:33 | NUR ---
patient this morning blood sugar is 148, patient refused his sliding scale insulin, risks and benefits explained to patient, verbalized understanding of it. no acute distress noted at this time
[2022-03-02] MEDS: GLUCERNA SHAKE 237 ML CAN PO SCH (09:00)
[2022-03-02] MEDS: ACIDOPHILUS/BULGARICUS CHEW TAB PO SCH ×2 (09:03→20:37)
[2022-03-02] MEDS: ASPIRIN 81 MG TAB.CHEW PO SCH (09:03)
[2022-03-02] MEDS: GUAIFENESIN LA 600 MG TABLET.SA PO SCH ×2 (09:03→20:37)
[2022-03-02] MEDS: REMEDY ESSENTIAL ZINC PASTE 113 GM TOP SCH ×2 (09:04→20:50)
[2022-03-02] MEDS: SEVELAMER CARBONATE 800 MG TABLET PO SCH ×3 (09:04→17:05)
[2022-03-02] MEDS: INSULIN REGULAR, HUMAN 300 UNIT/3 ML VIAL SQ PRN ×2 (11:21→20:45)
--- NOTE | 2022-03-02 15:31 | NUR ---
Patient is alert, oriented x4, no sob, resp even nonlabord, skin warm and dry to touch, skin inspected, left heel with DTI, purplish in color, intact, no drainage noted, no acute changes noted with Left heel DTI, continue to float on pillows, right heel skin is intact, sacrum area assessed, no skin issues noted at sacrum, heeled, Mepilex placed for maintaince, educated patient on turning and repositioning, patient verbalized understanding of it, on air mattress, no acute distress noted at this time.,
[2022-03-02 16:31] VITALS: BP_SYST 121; BP_SYST 123; BP_SYST 98; BP_DIAS 42; BP_DIAS 60; BP_DIAS 64
[2022-03-02] MEDS: FOLIC ACID/VITAMIN B COMP W-C TABLET PO SCH (17:05)
[2022-03-02 20:45] VITALS: BP 133/66
[2022-03-02] MEDS: MIDODRINE HCL 5 MG TABLET PO SCH (20:50)
[2022-03-03] MEDS: ALBUTEROL SULFATE 1.25 MG/3 ML NEBU NEB SCH ×4 (01:30→19:35)
[2022-03-03] MEDS: IPRATROPIUM BROMIDE 0.5 MG/2.5 ML NEBU NEB SCH ×4 (01:30→19:35)
[2022-03-03 04:40] VITALS: BP 125/71
[2022-03-03] MEDS: BLOOD SUGAR DIAGNOSTIC 1 EACH STRIP VI SCH ×4 (06:38→20:20)
[2022-03-03 08:02] VITALS: BP 116/60
[2022-03-03] MEDS: ASPIRIN 81 MG TAB.CHEW PO SCH (08:43)
[2022-03-03] MEDS: ACIDOPHILUS/BULGARICUS CHEW TAB PO SCH ×2 (08:43→20:22)
[2022-03-03] MEDS: SEVELAMER CARBONATE 800 MG TABLET PO SCH ×3 (08:43→17:14)
[2022-03-03] MEDS: GUAIFENESIN LA 600 MG TABLET.SA PO SCH ×2 (08:44→20:22)
[2022-03-03] MEDS: MIDODRINE HCL 5 MG TABLET PO SCH ×2 (08:45→20:42)
[2022-03-03] MEDS: GLUCERNA SHAKE 237 ML CAN PO SCH (08:45)
[2022-03-03] MEDS: REMEDY ESSENTIAL ZINC PASTE 113 GM TOP SCH ×2 (08:46→20:22)
[2022-03-03] MEDS: INSULIN REGULAR, HUMAN 300 UNIT/3 ML VIAL SQ PRN ×3 (11:46→20:23)
[2022-03-03 16:00] VITALS: BP 118/64
[2022-03-03] MEDS: FOLIC ACID/VITAMIN B COMP W-C TABLET PO SCH (17:18)
[2022-03-03 19:57] VITALS: BP 138/52
[2022-03-04] MEDS: IPRATROPIUM BROMIDE 0.5 MG/2.5 ML NEBU NEB SCH ×4 (01:30→20:14)
[2022-03-04] MEDS: ALBUTEROL SULFATE 1.25 MG/3 ML NEBU NEB SCH ×4 (01:30→20:14)
[2022-03-04 04:41] VITALS: BP 117/54
[2022-03-04] MEDS: BLOOD SUGAR DIAGNOSTIC 1 EACH STRIP VI SCH ×4 (07:30→22:08)
[2022-03-04 09:03] VITALS: BP 112/59
[2022-03-04] MEDS: ASPIRIN 81 MG TAB.CHEW PO SCH (09:08)
[2022-03-04] MEDS: ACIDOPHILUS/BULGARICUS CHEW TAB PO SCH ×2 (09:08→22:06)
[2022-03-04] MEDS: MIDODRINE HCL 5 MG TABLET PO SCH ×2 (09:09→22:06)
[2022-03-04] MEDS: GUAIFENESIN LA 600 MG TABLET.SA PO SCH ×2 (09:09→22:07)
[2022-03-04] MEDS: SEVELAMER CARBONATE 800 MG TABLET PO SCH ×3 (09:10→16:50)
[2022-03-04] MEDS: GLUCERNA SHAKE 237 ML CAN PO SCH (09:10)
[2022-03-04] MEDS: REMEDY ESSENTIAL ZINC PASTE 113 GM TOP SCH ×2 (09:11→22:07)
[2022-03-04] MEDS: INSULIN REGULAR, HUMAN 300 UNIT/3 ML VIAL SQ PRN ×3 (11:20→22:10)
[2022-03-04 16:43] VITALS: BP 109/56
[2022-03-04] MEDS: FOLIC ACID/VITAMIN B COMP W-C TABLET PO SCH (16:50)
[2022-03-05] MEDS: ALBUTEROL SULFATE 1.25 MG/3 ML NEBU NEB SCH ×4 (01:14→19:34)
[2022-03-05] MEDS: IPRATROPIUM BROMIDE 0.5 MG/2.5 ML NEBU NEB SCH ×4 (01:14→19:34)
--- NOTE | 2022-03-05 05:58 | NUR ---
Slept well within the shift,not in labored breathing, tolerated on room air saturating above 95%, complaint of moderate to severe headache, [place] 5-325mg PO given, able to slept after an hour. Vitally stable. For continuity of care.
[2022-03-05] MEDS: BLOOD SUGAR DIAGNOSTIC 1 EACH STRIP VI SCH ×4 (06:48→20:31)
[2022-03-05 07:27] VITALS: BP 106/59
[2022-03-05] MEDS: REMEDY ESSENTIAL ZINC PASTE 113 GM TOP SCH ×2 (08:04→20:29)
[2022-03-05] MEDS: GUAIFENESIN LA 600 MG TABLET.SA PO SCH ×2 (08:04→20:28)
[2022-03-05] MEDS: ASPIRIN 81 MG TAB.CHEW PO SCH (08:04)
[2022-03-05] MEDS: ACIDOPHILUS/BULGARICUS CHEW TAB PO SCH ×2 (08:04→20:28)
[2022-03-05] MEDS: MIDODRINE HCL 5 MG TABLET PO SCH ×2 (08:04→20:28)
[2022-03-05] MEDS: GLUCERNA SHAKE 237 ML CAN PO SCH (08:04)
[2022-03-05] MEDS: SEVELAMER CARBONATE 800 MG TABLET PO SCH ×3 (08:04→17:24)
[2022-03-05] MEDS: INSULIN REGULAR, HUMAN 300 UNIT/3 ML VIAL SQ PRN ×3 (11:58→20:40)
[2022-03-05 15:48] VITALS: BP 102/48
[2022-03-05] MEDS: FOLIC ACID/VITAMIN B COMP W-C TABLET PO SCH (17:24)
[2022-03-05 20:26] VITALS: BP 124/57
[2022-03-05] MEDS: TEMAZEPAM 7.5 MG CAPSULE PO PRN (20:28)
[2022-03-06] MEDS: ALBUTEROL SULFATE 1.25 MG/3 ML NEBU NEB SCH ×4 (01:21→19:24)
[2022-03-06] MEDS: IPRATROPIUM BROMIDE 0.5 MG/2.5 ML NEBU NEB SCH ×4 (01:21→19:25)
[2022-03-06 05:21] VITALS: BP 119/59
[2022-03-06] MEDS: BLOOD SUGAR DIAGNOSTIC 1 EACH STRIP VI SCH ×4 (06:03→21:28)
--- NOTE | 2022-03-06 06:27 | NUR ---
Slept well. All needs attended and met. No complaint presented all night.Continue care as planned.
[2022-03-06 08:03] VITALS: BP 106/42
[2022-03-06] MEDS: SEVELAMER CARBONATE 800 MG TABLET PO SCH ×3 (08:15→17:06)
[2022-03-06] MEDS: ASPIRIN 81 MG TAB.CHEW PO SCH (08:16)
[2022-03-06] MEDS: MIDODRINE HCL 5 MG TABLET PO SCH ×2 (08:16→21:15)
[2022-03-06] MEDS: ACIDOPHILUS/BULGARICUS CHEW TAB PO SCH ×2 (08:16→21:15)
[2022-03-06] MEDS: GLUCERNA SHAKE 237 ML CAN PO SCH (08:16)
[2022-03-06] MEDS: GUAIFENESIN LA 600 MG TABLET.SA PO SCH ×2 (08:16→21:15)
[2022-03-06] MEDS: REMEDY ESSENTIAL ZINC PASTE 113 GM TOP SCH ×2 (08:38→21:16)
[2022-03-06] MEDS: INSULIN REGULAR, HUMAN 300 UNIT/3 ML VIAL SQ PRN ×3 (12:06→21:33)
[2022-03-06] MEDS: ARGININE/GLUTAMINE/CALCIUM BMB 1 EACH POWD.PACK PO SCH (14:30)
[2022-03-06 16:13] VITALS: BP 117/51
[2022-03-06] MEDS: FOLIC ACID/VITAMIN B COMP W-C TABLET PO SCH (17:06)
[2022-03-06 21:39] VITALS: BP 118/64
[2022-03-07] MEDS: IPRATROPIUM BROMIDE 0.5 MG/2.5 ML NEBU NEB SCH ×4 (01:19→20:06)
[2022-03-07] MEDS: ALBUTEROL SULFATE 1.25 MG/3 ML NEBU NEB SCH ×4 (01:19→20:06)
[2022-03-07 04:00] VITALS: BP 121/65
[2022-03-07] MEDS: BLOOD SUGAR DIAGNOSTIC 1 EACH STRIP VI SCH ×4 (06:35→20:35)
--- NOTE | 2022-03-07 06:44 | NUR ---
Slept through the night. Repositioned often. Denies any pain or SOB. All medications administered as ordered. All needs attended. No complaints as of this time. Will endorse to incoming nurse.
[2022-03-07 06:51] LABS: HEMATOCRIT 26.9 % (36.7-47.1); MEAN CORPUSCULAR HEMOGLOBIN 30.6 uug (23.8-33.4); MEAN CORPUSCULAR VOLUME 90.6 fL (73.0-96.2); PLATELET COUNT (AUTO) 303 K/uL (152-348)
[2022-03-07 07:16] LABS: ALANINE AMINOTRANSFERASE 8 U/L (16-63); ALKALINE PHOSPHATASE 77 U/L (50-136); ASPARTATE AMINOTRANSFERASE 8 U/L (15-37); BILIRUBIN,TOTAL 0.5 mg/dL (0.2-1.0); CARBON DIOXIDE 31 mmol/L (21-32); CHLORIDE 100 mmol/L (98-107); CREATININE 3.4 mg/dL (0.6-1.3); GLUCOSE 81 mg/dL (74-106); POTASSIUM 5.3 mmol/L (3.5-5.1)
[2022-03-07 08:00] VITALS: BP 115/58
[2022-03-07] MEDS ORDERED: MINERAL OIL FLEET ENEMA 133 ML BOTTLE RC ONE (08:00)
[2022-03-07 08:05] LABS: UREA NITROGEN, BLOOD 86 mg/dL (7-18)
[2022-03-07] MEDS: MIDODRINE HCL 5 MG TABLET PO SCH ×2 (08:25→20:32)
[2022-03-07] MEDS: GLUCERNA SHAKE 237 ML CAN PO SCH (08:25)
[2022-03-07] MEDS: SEVELAMER CARBONATE 800 MG TABLET PO SCH ×3 (08:25→17:17)
[2022-03-07] MEDS: ASPIRIN 81 MG TAB.CHEW PO SCH (08:25)
[2022-03-07] MEDS: GUAIFENESIN LA 600 MG TABLET.SA PO SCH ×2 (08:25→20:32)
[2022-03-07] MEDS: ACIDOPHILUS/BULGARICUS CHEW TAB PO SCH ×2 (08:25→20:32)
[2022-03-07] MEDS: ARGININE/GLUTAMINE/CALCIUM BMB 1 EACH POWD.PACK PO SCH (08:56)
[2022-03-07] MEDS: REMEDY ESSENTIAL ZINC PASTE 113 GM TOP SCH ×2 (08:59→20:32)
[2022-03-07] MEDS ORDERED: SODIUM POLYSTYRENE SULFONATE 15 G/60 ML LIQUID UDC PO ONE (09:00)
[2022-03-07 09:15] LABS: MAGNESIUM 2.9 mg/dL (1.8-2.4)
[2022-03-07 11:54] LABS: NEUTROPHILS % (MANUAL) 0 % (42-75)
--- NOTE | 2022-03-07 13:08 | NUR ---
WOUND CARE CONSULT/FOLLOW UP: PT SEEN FOR FOLLOW UP OF GLUTEAL CREASE/INNER BUTTOCKS OPEN SKIN (MOISTURE ASSOCIATED) WHICH IS NOW RESOLVED. PT NOTED TO HAVE LEFT HEEL DEEP TISSUE INJURY IN EVOLUTION. DISCUSSED WITH DR RG (DPM CURRENTLY ON CASE). RECOMMENDATIONS MADE FOR SKIN PROTECTION. DISCUSSED WITH NURSING STAFF. PT IS ON FIRST STEP CHAPARRO GARZA AIRLOSS MATTRESS. IN AGREEMENT WITH PLAN OF CARE.
--- NOTE | 2022-03-07 15:04 | NUR ---
INTERDISCIPLINARY TEAM CONFERENCE
[2022-03-07 15:27] VITALS: BP 124/61
[2022-03-07] MEDS: INSULIN REGULAR, HUMAN 300 UNIT/3 ML VIAL SQ PRN ×2 (16:24→20:40)
[2022-03-07] MEDS: FOLIC ACID/VITAMIN B COMP W-C TABLET PO SCH (17:17)
--- NOTE | 2022-03-07 18:15 | NUR ---
dc folly catheter per md orders
[2022-03-07 20:00] VITALS: BP 143/72
[2022-03-08] MEDS: ALBUTEROL SULFATE 1.25 MG/3 ML NEBU NEB SCH ×3 (01:30→13:04)
[2022-03-08] MEDS: IPRATROPIUM BROMIDE 0.5 MG/2.5 ML NEBU NEB SCH ×3 (01:30→13:04)
[2022-03-08 04:41] VITALS: BP 131/53
--- NOTE | 2022-03-08 05:52 | NUR ---
Patient complaining of bladder discomforts (+) bladder distention, bladder scan performed obtained 653 cc. made aware. OK to do IN and OUT catheterization.
--- NOTE | 2022-03-08 06:11 | NUR ---
In and out catheterization performed obtained 950 cc clear yellow urine output. Patient tolerated procedure well.
[2022-03-08] MEDS: BLOOD SUGAR DIAGNOSTIC 1 EACH STRIP VI SCH (06:20)
--- NOTE | 2022-03-08 06:50 | NUR ---
Patient requesting if he can keep the ralph catheter. made aware and she oK'ed it. Patient made aware-HAPPY...
[2022-03-08 07:47] VITALS: BP 146/70
[2022-03-08] MEDS ORDERED: GLIMEPIRIDE 2 MG TABLET PO SCH (08:00)
--- NOTE | 2022-03-08 08:00 | NUR ---
AWAKE ALERT AND ORIENTED X3 NO SS OF PAIN OR SOB. [id number] WITH PT, OT FOR EXERCISES SEE NOTES. PLAN DISCHARGE TODAY
[2022-03-08] MEDS: ASPIRIN 81 MG TAB.CHEW PO SCH (08:35)
[2022-03-08] MEDS: SEVELAMER CARBONATE 800 MG TABLET PO SCH ×2 (08:36→12:37)
[2022-03-08] MEDS: ACIDOPHILUS/BULGARICUS CHEW TAB PO SCH (08:38)
[2022-03-08] MEDS: MIDODRINE HCL 5 MG TABLET PO SCH (08:38)
[2022-03-08] MEDS: GUAIFENESIN LA 600 MG TABLET.SA PO SCH (08:38)
[2022-03-08] MEDS: ARGININE/GLUTAMINE/CALCIUM BMB 1 EACH POWD.PACK PO SCH (08:39)
[2022-03-08] MEDS: GLUCERNA SHAKE 237 ML CAN PO SCH (08:40)
[2022-03-08] MEDS: REMEDY ESSENTIAL ZINC PASTE 113 GM TOP SCH (08:40)
--- NOTE | 2022-03-08 12:00 | NUR ---
NO ACUTE CHANGE FROM MORNING ASSESSMENT
--- NOTE | 2022-03-08 14:45 | NUR ---
SEEN BY DR RG FOR WOUND CARE SEE NOTES
--- NOTE | 2022-03-08 15:00 | NUR ---
SEEN BY DR YA WITH DISCHARGE ORDERS. MEDICATION AND FOLLOW-UP INSTRUCTION GIVEN TO PATIENT AND SON AT BEDSIDE
[2022-03-08 15:08] VITALS: BP 142/61
--- NOTE | 2022-03-08 16:44 | NUR ---
DISCHARGED HOME STABLE VIA AMBULANCE ALONG WITH SON.
== END 2022-03-08 16:35 | disposition home health service (06) | DRG 189 ==
PROVIDERS: ADMIT Physical Medicine & Rehabilitation Pain Medicine; ATTEND Physical Medicine & Rehabilitation Pain Medicine
DX: J96.21 Acute and chronic respiratory failure with hypoxia (principal); G92.8 Other toxic encephalopathy; I62.00 Nontraumatic subdural hemorrhage, unspecified; N17.0 Acute kidney failure with tubular necrosis; G93.40 Encephalopathy, unspecified; N18.4 Chronic kidney disease, stage 4 (severe); D68.59 Other primary thrombophilia; E87.1 Hypo-osmolality and hyponatremia; N39.0 Urinary tract infection, site not specified; E87.4 Mixed disorder of acid-base balance; J96.22 Acute and chronic respiratory failure with hypercapnia; E11.22 Type 2 diabetes mellitus with diabetic chronic kidney disease; E11.65 Type 2 diabetes mellitus with hyperglycemia; E78.5 Hyperlipidemia, unspecified; I12.9 Hypertensive chronic kidney disease with stage 1 through stage 4 chronic kidney disease, or unspecified chronic kidney disease; I25.10 Atherosclerotic heart disease of native coronary artery without angina pectoris; I48.91 Unspecified atrial fibrillation; J44.9 Chronic obstructive pulmonary disease, unspecified; Z86.16 Personal history of COVID-19; D64.9 Anemia, unspecified; E86.1 Hypovolemia; R33.9 Retention of urine, unspecified; K56.41 Fecal impaction; L89.629 Pressure ulcer of left heel, unspecified stage; L89.619 Pressure ulcer of right heel, unspecified stage; M19.90 Unspecified osteoarthritis, unspecified site; Z79.01 Long term (current) use of anticoagulants; Z85.46 Personal history of malignant neoplasm of prostate; Z87.891 Personal history of nicotine dependence; Z90.79 Acquired absence of other genital organ(s); G47.33 Obstructive sleep apnea (adult) (pediatric); N28.1 Cyst of kidney, acquired; N13.9 Obstructive and reflux uropathy, unspecified
CPT/HCPCS: 36415; 36600; 70030-TC; 71045; 74018; 83735; 84100; 85025; 94640; 94660; 94760; 97161; 97535-GO-CO; A6209; A6213; J0692; J1815; J3590; J7614

== ENCOUNTER 2022-03-23 11:30 | Emergency (ER) | payer MEDICARE ==
[~2022-03-23] VITALS: Ht 185.4 cm; Wt 81.6 kg
[~2022-03-23 11:30] MED LIST changes: -ACET-73 PO; -ALBU18HF2 INH; -BENZ200C53 PO; -CARV6.252 PO; -CEFE2PIG2 IV; -DEXA4TAB PO; +INSU100V7 SQ; -INSU300I3 SQ; -Insulin Glargine,Hum SQ; -NATE120T6 PO; -ROSU20TA2 PO; -VIT1TABL46 PO
--- NOTE | 2022-03-23 15:44 | NUR ---
Patient eloped from facility. ER physician notified.
== END 2022-03-23 15:47 | disposition left against medical advice (07) ==
LOC: ER 11:30
DX: Z53.21 Procedure and treatment not carried out due to patient leaving prior to being seen by health care provider (principal)